=== PATIENT | female | born 1930 | race Caucasian/White ===

== ENCOUNTER 2017-08-21 14:46 | Inpatient (IN) ==
[2017-08-21] MEDS ORDERED: Ipratropium/Albuterol Neb 3 ML IH ONE (14:57)
[2017-08-21] MEDS ORDERED: 0.9 % Sodium Chloride 1,000 ML IVC ONE ×2 (14:57→16:21)
[2017-08-21] MEDS ORDERED: Acetaminophen 650 MG RECTAL SUPP RC ONE (14:59)
--- NOTE | 2017-08-21 15:01 | Emergency Department Note ---
Disposition Clinical Impression: HCAP (healthcare-associated pneumonia) UTI (urinary tract infection) Qualifiers: Urinary tract infection type: acute cystitis Hematuria presence: with hematuria Qualified Code(s): N30.01 - Acute cystitis with hematuria Sepsis Qualifiers: Sepsis type: sepsis due to unspecified organism Qualified Code(s): A41.9 - Sepsis, unspecified organism Disposition: Admitted As Inpatient Condition: Fair Time of Disposition: 16:59 SOB HPI - General Chief Complaint: ED Shortness of Breath/Dyspnea Stated Complaint: NANETTE Source: patient, EMS Limitations: other Nursing Notes Reviewed: Yes Vital Signs Reviewed: Yes - History of Present Illness 87-year-old female past medical history of CHF, urinary tract infections, stroke , but his emergency department with shortness of breath, fever, from [facility]. Patient was diagnosed with pneumonia in the right lower lobe today and sent here from [facility]. Patient is currently complaining of suprapubic pain. She does have past medical history of recurrent urinary tract infections. Family at bedside states that she has her normal mental status. Patient has no previous history of blood clots, COPD, cancer. She reports no swelling in the lower extremities. - Related Data Home Medications Medication Instructions Recorded Confirmed Cholecalciferol (Vitamin D3) 50,000 unit PO QMONTH 07/14/16 08/21/17 [Vitamin D] Clopidogrel [Plavix] 75 mg PO DAILY 07/14/16 08/21/17 Furosemide [Lasix] 20 mg PO DAILY 07/14/16 08/21/17 HYDROcodone/Acet 5/325 mg [[place] 1 tab PO HS 07/14/16 08/21/17 5-325 mg] Loratadine [Allergy Relief] 10 mg PO DAILY 07/14/16 08/21/17 Menthol/Zinc Ox/Aloe/Carley Oil 1 appl TP TID 07/14/16 08/21/17 [Chamosyn Ointment] Multivit-Min/FA/Lycopen/Lutein 1 each PO DAILY 07/14/16 08/21/17 [Centrum Silver Tablet] Sennosides [Senna] 8.6 mg PO DAILY PRN 07/14/16 08/21/17 amLODIPine [Norvasc] 5 mg PO DAILY 07/14/16 08/21/17 Acetaminophen [Tylenol] 650 mg PO Q6H PRN 08/25/16 08/21/17 Ascorbate Calcium [Vitamin C] 500 mg PO DAILY 08/25/16 08/21/17 Nystatin POWDER [Nystop] 1 appl TP BID PRN 08/25/16 08/21/17 Acetaminophen [Tylenol] 650 mg PO 0700,199908/21/17 08/21/17 Ammonium Lactate [Mayra-Hydrolac] 1 appl TP BID 08/21/17 08/21/17 Bisacodyl [Dulcolax] 10 mg RC AD PRN 08/21/17 08/21/17 Magnesium Hydroxide [Milk of 2,400 mg PO DAILY PRN 08/21/17 08/21/17 Magnesia] Oxygen 2 l NS AD 08/21/17 08/21/17 Sertraline [Zoloft] 75 mg PO DAILY 08/21/17 08/21/17 traZODone [TraZODone] 50 mg PO HS 08/21/17 08/21/17 Allergies Allergy/AdvReac Type Severity Reaction Status Date / Time No Known Allergies Allergy Verified 11/27/15 14:21 All systems ED: reviewed and negative except as stated. Review of Systems: As Per HPI Constitutional: Reports: fever Cardiovascular: Denies: chest pain Respiratory: Reports: cough, dyspnea, sputum production. Denies: hemoptysis Gastrointestinal: Reports: abdominal pain. Denies: nausea, vomiting Genitourinary: Reports: urgency, dysuria, frequency Past Medical History - Past Medical History Source: old records reviewed, nursing notes reviewed Medical history: Reports: CHF, CVA, hyperlipidemia, hypertension Psychiatric history: Reports: depression - Social History Smoking Status: Never smoker Smokeless Tobacco Status: No Alcohol use: Reports: none Drug use: Reports: none Physical Exam CONSTITUTIONAL: Alert and oriented X3, mild respiratory distress, tachypnea, HEAD: Normocephalic; atraumatic. EYES: PERRL, no scleral icterus. NOSE: The nose is normal in appearance without rhinorrhea RESP: Normal chest excursion with respiration; rhonchi throughout CARD: Regular rhythm, without murmurs, rub or gallop ABD: Non-distended; mild tenderness to palpation of the suprapubic region, soft ,without rigidity, rebound or guarding SKIN: 2 sacral decubiti, one on the coccyx appears to be stage I, one on the left inferior gluteal region that I stage I as well. - General Limitations: other Course - Reevaluation(s) Reevaluation #1: Awaiting all labs Time: 16:30 Vital Signs Temperature 103.0 F H 08/21/17 14:52 Pulse Rate 109 08/21/17 14:52 Respiratory Rate 24 08/21/17 14:52 Blood Pressure 135/106 08/21/17 14:52 O2 Sat by Pulse Oximetry 89 08/21/17 14:52 Temperature 99.8 F H 08/21/17 17:49 Pulse Rate 89 08/21/17 19:00 Respiratory Rate 22 08/21/17 19:44 Blood Pressure 130/67 08/21/17 19:44 O2 Sat by Pulse Oximetry 98 08/21/17 19:00 Oxygen Delivery Oxygen Delivery Bipap Shortness of Breath/Dyspnea - MDM Narrative Medical decision making narrative: 87 year old female presents to the emergency department with an oxygen saturation 86% on nasal cannula, fever of 103 degrees Fahrenheit, tachycardic, but normotensive. There is a chest x-ray from her nursing facility that reveals a right lower lobe pneumonia. This was concerning for aspiration versus healthcare acquired pneumonia. There is also concern for urinary tract infection as patient currently has urinary tract infections. We have ordered a chest x-ray, CBC, CMP and lipase she was having abdominal pain, lactic acid. Patient is being given 1 L of normal saline at this time and she has a history of congestive heart failure. She is also receiving vancomycin, Zosyn, Levaquin via IV. Patient's electrocardiogram not reveal any ischemic ST changes. I have placed patient on BiPAP here in the emergency department as well as well as administered duo nebs. This patient does not have a medical history of COPD. I will not start any steroids at this time. Her chest x-ray reveals right lower lung pneumonia. The patient also has a leukocytosis of 17. Patient renal insufficiency with a creatinine of 1.33. Lactic acid was within normal limits. The patient does have an elevated troponin 0.05. At this time, the patient does not have any ischemic EKG changes or chest pain to suggest acute coronary syndrome. This elevated troponin may be due to demand ischemia versus her acute renal insufficiency. Patient's tachycardia has responded well to administration of 2 L of normal saline. Urinalysis reveals urinary tract infection. Patient is currently on the IV antimicrobials that should cover this. I discussed plan with patient and family at bedside to admit. They agreed with the plan. Patient was admitted to the hospitalist. Patient is currently on BiPAP and has responded well to it. Chest X-Ray 08/21/17 14:55 IMPRESSION: The exam is limited due to significant motion artifact. Findings suggest right lung base atelectasis versus pneumonia. D/ / 08/21/2017 15:51:27 Jama Cooley [facility] / [facility] Interpreting Provider: Jama Cooley MD - Lab Data Result diagrams: 08/21/17 16:15 08/21/17 16:15 Lab Results 08/21/17 08/21/17 08/21/17 Range/Units 16:15 16:15 16:15 WBC 17.0 H (4.3-11.1) K/mcL RBC 3.88 (3.82-4.97) M/mcL Hgb 11.9 (11.5-15.4) g/dL Hct 36.9 (35.3-44.9) % MCV 95.1 (83.0-100.0) fL MCH 30.7 (28.0-33.3) pg MCHC 32.2 (31.6-35.5) g/dL RDW 15.8 H (11.5-14.5) % Plt Count 145 (140-400) K/mcL MPV 10.4 (9.4-12.4) fL Immature Gran % 1.0 (0-4) % Seg Neutrophils % 88.1 % Lymphocytes % 5.2 % Monocytes % 5.5 % Eosinophils % 0.1 % Basophils % 0.1 % Neutrophils # 15.0 H (1.6-8.9) K/mcL Lymphocytes # 0.9 (0.6-4.6) K/mcL Monocytes # 0.9 (0.0-1.3) K/mcL Eosinophils # 0.0 (0.0-0.6) K/mcL Basophils # 0.0 (0.0-0.2) K/mcL VBG pH (7.32-7.42) pH Units VBG pCO2 (41-51) mmHg VBG pO2 (25-50) mmHg VBG HCO3 (21-27) mEq/L Sodium 142 (136-145) mEq/L Potassium 4.0 (3.5-4.5) mEq/L Chloride 105 (98-109) mEq/L Carbon Dioxide 21 (19-29) mEq/L BUN 30 H (7-20) mg/dL Creatinine 1.33 H (0.57-1.11) mg/dL Est GFR ( Amer) 46 L (> 60) Est GFR (Non-Af Amer) 38 L (> 60) BUN/Creatinine Ratio 23 (6-26) Glucose 157 H (70-99) mg/dL Calculated Osmolality 303 H (280-300) Lactic Acid 1.4 (0.5-2.2) mmol/L Calcium 8.5 L (8.6-10.8) mg/dL Total Bilirubin 1.3 H (0.2-1.2) mg/dL Direct Bilirubin 0.6 H (0.0-0.5) mg/dL Indirect Bilirubin 0.7 (0.0-1.2) mg/dL AST 25 (5-34) Units/L ALT 12 (0-55) Units/L Alkaline Phosphatase 74 (38-126) Units/L Troponin I (0-0.03) ng/mL B-Natriuretic Peptide (0-100) pg/mL Serum Total Protein 7.9 (6.0-8.3) g/dL Albumin 2.8 L (3.5-5.0) g/dL Globulin 5.1 H (2.4-3.5) g/dL Albumin/Globulin Ratio 0.5 L (1.1-2.2) Lipase 21 (8-78) Units/L Urine Color (Yellow) Urine Clarity (Clear) Urine pH (5.0-8.0) pH Units Ur Specific Fluker (1.010-1.025) Urine Protein (Neg-Trace) mg/dL Urine Glucose (UA) (Normal) mg/dL Urine Ketones (Negative) mg/dL Urine Blood (Negative) Urine Nitrite (Negative) Urine Bilirubin (Negative) Urine Urobilinogen (Normal) mg/dL Ur Leukocyte Esterase (Negative) Urine Microscopic RBC (0-3) per hpf Urine Microscopic WBC (0-3) per hpf Ur Squamous Epith Cells (None-Few) per lpf Urine Bacteria (None-Few) per hpf Hyaline Casts (None-Few) per lpf Ur Culture Indicated? (NO) 08/21/17 08/21/17 08/21/17 Range/Units 16:15 16:15 16:27 WBC (4.3-11.1) K/mcL RBC (3.82-4.97) M/mcL Hgb (11.5-15.4) g/dL Hct (35.3-44.9) % MCV (83.0-100.0) fL MCH (28.0-33.3) pg MCHC (31.6-35.5) g/dL RDW (11.5-14.5) % Plt Count (140-400) K/mcL MPV (9.4-12.4) fL Immature Gran % (0-4) % Seg Neutrophils % % Lymphocytes % % Monocytes % % Eosinophils % % Basophils % % Neutrophils # (1.6-8.9) K/mcL Lymphocytes # (0.6-4.6) K/mcL Monocytes # (0.0-1.3) K/mcL Eosinophils # (0.0-0.6) K/mcL Basophils # (0.0-0.2) K/mcL VBG pH (7.32-7.42) pH Units VBG pCO2 (41-51) mmHg VBG pO2 (25-50) mmHg VBG HCO3 (21-27) mEq/L Sodium (136-145) mEq/L Potassium (3.5-4.5) mEq/L Chloride (98-109) mEq/L Carbon Dioxide (19-29) mEq/L BUN (7-20) mg/dL Creatinine (0.57-1.11) mg/dL Est GFR ( Amer) (> 60) Est GFR (Non-Af Amer) (> 60) BUN/Creatinine Ratio (6-26) Glucose (70-99) mg/dL Calculated Osmolality (280-300) Lactic Acid (0.5-2.2) mmol/L Calcium (8.6-10.8) mg/dL Total Bilirubin (0.2-1.2) mg/dL Direct Bilirubin (0.0-0.5) mg/dL Indirect Bilirubin (0.0-1.2) mg/dL AST (5-34) Units/L ALT (0-55) Units/L Alkaline Phosphatase (38-126) Units/L Troponin I 0.05 H* (0-0.03) ng/mL B-Natriuretic Peptide 157 H (0-100) pg/mL Serum Total Protein (6.0-8.3) g/dL Albumin (3.5-5.0) g/dL Globulin (2.4-3.5) g/dL Albumin/Globulin Ratio (1.1-2.2) Lipase (8-78) Units/L Urine Color Dark Yellow (Yellow) Urine Clarity Turbid A (Clear) Urine pH 6.0 (5.0-8.0) pH Units Ur Specific Fluker 1.023 (1.010-1.025) Urine Protein 100 H (Neg-Trace) mg/dL Urine Glucose (UA) Normal (Normal) mg/dL Urine Ketones Trace H (Negative) mg/dL Urine Blood Large H (Negative) Urine Nitrite Negative (Negative) Urine Bilirubin Small H (Negative) Urine Urobilinogen 2.0 H (Normal) mg/dL Ur Leukocyte Esterase Large H (Negative) Urine Microscopic RBC 15-30 H (0-3) per hpf Urine Microscopic WBC TNTC H (0-3) per hpf Ur Squamous Epith Cells Many H (None-Few) per lpf Urine Bacteria Moderate H (None-Few) per hpf Hyaline Casts None Seen (None-Few) per lpf Ur Culture Indicated? YES A (NO) 08/21/17 08/21/17 Range/Units 16:29 16:56 WBC (4.3-11.1) K/mcL RBC (3.82-4.97) M/mcL Hgb (11.5-15.4) g/dL Hct (35.3-44.9) % MCV (83.0-100.0) fL MCH (28.0-33.3) pg MCHC (31.6-35.5) g/dL RDW (11.5-14.5) % Plt Count (140-400) K/mcL MPV (9.4-12.4) fL Immature Gran % (0-4) % Seg Neutrophils % % Lymphocytes % % Monocytes % % Eosinophils % % Basophils % % Neutrophils # (1.6-8.9) K/mcL Lymphocytes # (0.6-4.6) K/mcL Monocytes # (0.0-1.3) K/mcL Eosinophils # (0.0-0.6) K/mcL Basophils # (0.0-0.2) K/mcL VBG pH 7.35 (7.32-7.42) pH Units VBG pCO2 45 (41-51) mmHg VBG pO2 68 H (25-50) mmHg VBG HCO3 25 (21-27) mEq/L Sodium (136-145) mEq/L Potassium (3.5-4.5) mEq/L Chloride (98-109) mEq/L Carbon Dioxide (19-29) mEq/L BUN (7-20) mg/dL Creatinine (0.57-1.11) mg/dL Est GFR ( Amer) (> 60) Est GFR (Non-Af Amer) (> 60) BUN/Creatinine Ratio (6-26) Glucose (70-99) mg/dL Calculated Osmolality (280-300) Lactic Acid 1.3 (0.5-2.2) mmol/L Calcium (8.6-10.8) mg/dL Total Bilirubin (0.2-1.2) mg/dL Direct Bilirubin (0.0-0.5) mg/dL Indirect Bilirubin (0.0-1.2) mg/dL AST (5-34) Units/L ALT (0-55) Units/L Alkaline Phosphatase (38-126) Units/L Troponin I (0-0.03) ng/mL B-Natriuretic Peptide (0-100) pg/mL Serum Total Protein (6.0-8.3) g/dL Albumin (3.5-5.0) g/dL Globulin (2.4-3.5) g/dL Albumin/Globulin Ratio (1.1-2.2) Lipase (8-78) Units/L Urine Color (Yellow) Urine Clarity (Clear) Urine pH (5.0-8.0) pH Units Ur Specific [place] (1.010-1.025) Urine Protein (Neg-Trace) mg/dL Urine Glucose (UA) (Normal) mg/dL Urine Ketones (Negative) mg/dL Urine Blood (Negative) Urine Nitrite (Negative) Urine Bilirubin (Negative) Urine Urobilinogen (Normal) mg/dL Ur Leukocyte Esterase (Negative) Urine Microscopic RBC (0-3) per hpf Urine Microscopic WBC (0-3) per hpf Ur Squamous Epith Cells (None-Few) per lpf Urine Bacteria (None-Few) per hpf Hyaline Casts (None-Few) per lpf Ur Culture Indicated? (NO) - EKG Data EKG attestation: Yes I reviewed and interpreted this EKG. EKG results narrative: 15:03 Ventricular rate 108 bpm, FL interval 142 ms, QRS duration 122 ms, QT 323 ms, QTC 386 ms, left axis deviation. Sinus rhythm ventricular rate 108 bpm. Right bundle branch block. There is no evidence of any ischemic ST changes noted on this electrocardiogram. No previous allergic cardiogram to compare this study to Attestation Statement - Attestation Attestation: I examined this patient and my medical decision-making was reviewed with the Resident Physician. I agree with the documented findings, disposition and treatment plan as described except to the extent set forth below. 87-year-old female presents to ED from extended care facility due to difficulty breathing and respiratory distress. Little verbal input from the patient. Uncertain as to the exact duration of time of symptoms but has been increasingly short of breath. There has been fever as well. Some complaints of suprapubic discomfort. No known vomiting. No flank or back pain. Elderly female in respiratory distress with BiPAP mask in place. He is membranes are moist. Neck is supple. Chest with coarse rhonchi or to the right base. Scattered expiratory wheezes. Cardiac exam regular, tachycardic. Chest wall non-tender. Abdomen soft and non-distended. Extremities with symmetric edema. Patient was continued on BiPAP for support and chest x-ray consistent with a right lower lobe infiltrate. Broad-spectrum antibiotics were initiated and she will be admitted for further evaluation. Renal function was at baseline, lactate was normal. No hypotension throughout her time in the ED. The high probability of a clinically significant, sudden or life threatening deterioration of the [cardiopulmonary] system(s) required my full and direct attention, intervention and personal management. The aggregate critical care time was [15] minutes. This time is in addition to time spent performing reported procedures but includes the following: [x] Data Review and interpretation [x] Patient assessment and monitoring of vital signs [x] Documentation [x] Medication orders and management
[2017-08-21] MEDS ORDERED: Vancomycin 1,250 MG in D5% in Water 250 ML IVPB ONE (15:08)
[2017-08-21] MEDS ORDERED: Piperacillin/Tazobactam 4.5 GM in Water for inj. (sterile) 20 ML IVP ONE (15:09)
[2017-08-21 16:32] LABS: VBG HCO3 25 mEq/L (21-27); VBG PCO2 45 mmHg (41-51); VBG PH 7.35 pH Units (7.32-7.42); VBG PO2 68 mmHg (25-50)
[2017-08-21 16:37] LABS: Basophils % 0.1 %; Eosinophils % 0.1 %; Hematocrit 36.9 % (35.3-44.9); Hemoglobin 11.9 g/dL (11.5-15.4); Lymphocytes # 0.9 K/mcL (0.6-4.6); Lymphocytes % 5.2 %; Mean Corpuscular HGB Conc 32.2 g/dL (31.6-35.5); Mean Corpuscular Hemoglobin 30.7 pg (28.0-33.3); Mean Corpuscular Volume 95.1 fL (83.0-100.0); Mean Platelet Volume 10.4 fL (9.4-12.4); Monocytes # 0.9 K/mcL (0.0-1.3); Monocytes % 5.5 %; Platelet Count 145 K/mcL (140-400); Red Blood Count 3.88 M/mcL (3.82-4.97); Red Cell Distribution Width 15.8 % (11.5-14.5); Segmented Neutrophils % 88.1 %
[2017-08-21 16:38] LABS: Bilirubin,Urine Small (Negative); Blood,Urine Large (Negative); Clarity,Urine Turbid (Clear); Color,Urine Dark Yellow (Yellow); Glucose,Urine (UA) Normal (Normal); Ketones,Urine Trace mg/dL (Negative); Leukocyte Esterase,Urine Large (Negative); Nitrite,Urine Negative (Negative); Protein,Urine 100 mg/dL (Neg-Trace); Specific Gravity,Urine 1.023 (1.010-1.025)
[2017-08-21 16:39] LABS: Bacteria,Urine Moderate per hpf (None-Few); RBC,Urine 15-30 per hpf (0-3); Squamous Epithelial Cell,Urine Many per lpf (None-Few); WBC,Urine TNTC per hpf (0-3)
[2017-08-21 16:43] LABS: Albumin 2.8 g/dL (3.5-5.0); Albumin/Globulin Ratio 0.5 (1.1-2.2); Bilirubin,Direct 0.6 mg/dL (0.0-0.5); Bilirubin,Indirect 0.7 mg/dL (0.0-1.2); Bilirubin,Total 1.3 mg/dL (0.2-1.2); Calcium 8.5 mg/dL (8.6-10.8); Globulin 5.1 g/dL (2.4-3.5); Total Protein 7.9 g/dL (6.0-8.3)
[2017-08-21 17:00] LABS: Hyaline Casts,Urine None Seen per lpf (None-Few)
[2017-08-21] MEDS ORDERED: Ondansetron 4 MG/2 ML VIAL IVP PRN (21:08)
[2017-08-21] MEDS ORDERED: Naloxone 0.4 MG/ML INJ IVP PRN (21:08)
--- NOTE | 2017-08-21 21:23 | Internal Med History&Physical ---
<EnrikeCurtis Leyva - Last Filed: 08/21/17 22:33> Date of Encounter: 08/21/17 Time of Encounter: 20:00 Assessment and Plan (1) Sepsis Current visit: Yes Status: Acute Patient presents with severe sepsis criteria of WBC of 17.0, temperature of 103.0F, HR of 109 bpm, and RR of 24. Infection sources include right lower-lobe pneumonia and UTI. Lactic acid 1.3. Bilirubin 1.3. Creatinine 1.33. Blood cultures 2. Urine culture ordered. Legionella and strep pneumoniae urine antigens ordered. Sputum culture ordered. Patient received two 1L 0.9 NS boluses in the ED. Will hold further IV fluids for now d/t current bilateral rhonchi in lungs and elevated BNP/hx of CHF. Current BP 144/77. IVPB Levaquin loading dose of 750 mg now with continuation of 500 mg every 48 for renal dosing due to current GFR 38 and creatinine 1.33. Will continue vancomycin with pharmacy dosing Zosyn 3.375 g every 8 for infection coverage of pneumonia and UTI. Continuous cardiac telemetry. Pt. placed on BiPap. DuoNebs Q4 scheduled. NPO for now d/t somnolence. Pt. is at high risk for sepsis and further morbidity d/t current sx, hx of recurrent UTI infections, and risk factors for HCAP. Inpatient. Qualifiers: Sepsis type: sepsis due to unspecified organism Qualified Code(s): A41.9 - Sepsis, unspecified organism (2) UTI (urinary tract infection) Current visit: Yes Status: Acute Pts. family reports hx of acute on chronic UTIs. Ford catheter placed with purulent urine voided. Urine culture ordered. Will administer IVPB Levaquin, vancomycin pharmacy dosing, and Zosyn 3.375 g every 8 for infection coverage. Monitor I&O. Qualifiers: Urinary tract infection type: acute cystitis Hematuria presence: with hematuria Qualified Code(s): N30.01 - Acute cystitis with hematuria (3) HCAP (healthcare-associated pneumonia) Current visit: Yes Status: Acute Acute right lower-lobe pneumonia diagnosed at [facility] today. Pt. 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 IVPB vancomycin and Zosyn administered ED. Will add IVPB Levaquin with loading dose of 750 mg now and then 500 mg Q48HR. Will continue vancomycin pharmacy dosing and Zosyn 3.375 g every 8 for HCAP infection coverage. Sputum culture ordered. Blood cultures 2. Legionella and strep pneumoniae urine antigens ordered. Pt. placed on BiPap. DuoNebs Q4 scheduled. (4) Elevated troponin Current visit: Yes Status: Acute Initial troponin 0.05 on admission most likely due to stress reaction from current tachycardia d/t sepsis. Will trend x2. Continuous cardiac telemetry. Will monitor pt. for signs of cardiac and/or respiratory distress. (5) Hyperglycemia Current visit: Yes Status: Acute Acute hyperglycemia w/BG of 157 on admission. Pt. NPO for now d/t somnolence. BG checks Q6HR and low-dose correction sliding scale insulin ordered with hypoglycemic protocol. A1c in a.m. labs. (6) CHF (congestive heart failure) Current visit: Yes Status: Chronic Hx of chronic CHF. BNP currently 157 on admission. Pt. given two 1L boluses of 0.9 NS in ED d/t sepsis criteria. Pt. is rhonchorous bilaterally on exam. Lactic acid currently 1.3. Will hold further IV fluids for now and administer if lactic acid becomes elevated. No pedal edema present at this time. Continuous cardiac telemetry. Monitor I&O and daily weight. Qualifiers: Congestive heart failure type: unspecified congestive heart failure type Congestive heart failure chronicity: unspecified congestive heart failure chronicity Qualified Code(s): I50.9 - Heart failure, unspecified (7) HLD (hyperlipidemia) Current visit: Yes Status: Chronic Hx of chronic HLD. Lipid panel in a.m. labs. Will resume PO statin when pt. is alert and passes dysphagia screen. Qualifiers: Hyperlipidemia type: pure hypercholesterolemia Qualified Code(s): E78.00 - Pure hypercholesterolemia, unspecified; E78.0 - Pure hypercholesterolemia (8) HTN (hypertension) Current visit: Yes Status: Chronic Hx of chronic HTN. Pt. is currently somnolent, so will hold PO HTN medications and administer hydralazine IVP 10 mg every 6 when necessary if SBP >180 or DBP > 100. Monitor pt. and VS. 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 Pts. family states she is not mobile and is transferred from wheelchair to bed. D/t hx of decubitus ulcers, orders to turn and position Q2 and assess for ulcers. Consult wound care if appropriate. (10) DVT prophylaxis Current visit: Yes Status: Acute Heparin 5000 units SQ every 12 for DVT prophylaxis. Monitor patient for unusual bleeding. Internal Medicine - H&P: HPI Chief complaint: SOB/Dyspnea Admitted From: Long-term Nursing Facility Plans for Post Hospital Care: Transfer Senior Living Facility History of present illness: Ms. Barriga is a 87 year old female with medical hx of CHF, CVA, each on the, HTN presents from [facility] with chief complaint shortness of breath and dyspnea for the past several days. Patient was diagnosed with right lower lobe pneumonia at [facility] and previously complained of suprapubic pain with urination. Patient is currently somnolent on examination and unable to provide information. History of present illness information taken from family and previous medical records. Patient family states she does not have a history of DVT/PE, COPD, or cancer. Past Med Surg Social Fam HX - Past Medical History Source: old records reviewed, obtained from family Medical history: CHF, CVA, hyperlipidemia, hypertension Psychiatric history: depression - Social History Smoking Status: Never smoker Smokeless Tobacco Status: No Alcohol use: none Drug use: none Current living situation: Assisted Living Activity Level: Wheelchair bound Recent Out of Country Travel Within the Last 8 Weeks: No Exposure or Possible Exposure to Illness During Travel: No Internal Medicine - H&P: Meds Cholecalciferol (Vitamin D3) [Vitamin D] 50,000 unit PO QMONTH 07/14/16 [History ] Clopidogrel [Plavix] 75 mg PO DAILY 07/14/16 [History] Furosemide [Lasix] 20 mg PO DAILY 07/14/16 [History] HYDROcodone/Acet 5/325 mg [[place] 5-325 mg] 1 tab PO HS 07/14/16 [History] Loratadine [Allergy Relief] 10 mg PO DAILY 07/14/16 [History] Menthol/Zinc Ox/Aloe/Carley Oil [Chamosyn Ointment] 1 appl TP TID 07/14/16 [ History] Multivit-Min/FA/Lycopen/Lutein [Centrum Silver Tablet] 1 each PO DAILY 07/14/16 [History] Sennosides [Senna] 8.6 mg PO DAILY PRN 07/14/16 [History] amLODIPine [Norvasc] 5 mg PO DAILY 07/14/16 [History] Acetaminophen [Tylenol] 650 mg PO Q6H PRN 08/25/16 [History] Ascorbate Calcium [Vitamin C] 500 mg PO DAILY 08/25/16 [History] Nystatin POWDER [Nystop] 1 appl TP BID PRN 08/25/16 [History] Acetaminophen [Tylenol] 650 mg PO 699,199908/21/17 [History] Ammonium Lactate [Mayra-Hydrolac] 1 appl TP BID 08/21/17 [History] Bisacodyl [Dulcolax] 10 mg RC AD PRN 08/21/17 [History] Magnesium Hydroxide [Milk of Magnesia] 2,400 mg PO DAILY PRN 08/21/17 [History] Oxygen 2 l NS AD 08/21/17 [History] Sertraline [Zoloft] 75 mg PO DAILY 08/21/17 [History] traZODone [TraZODone] 50 mg PO HS 08/21/17 [History] 3 Allergy/AdvReac Type Severity Reaction Status Date / Time No Known Allergies Allergy Verified 11/27/15 14:21 ROS unobtainable: due to mental status (Patient is on BiPap and somnolent on examination) All Systems PM: A 10-system review of systems was performed and is negative for pertinent findings except as documented above in the HPI. - Constitutional Vitals: Temp Pulse Resp BP Pulse Ox 99.8 F H 89 22 130/67 98 08/21/17 17:49 08/21/17 19:00 08/21/17 19:44 08/21/17 19:44 08/21/17 19:00 General appearance: Present: A&O X 0 - Head Head exam: Present: atraumatic, normocephalic - Eye Eye exam: Present: normal appearance - ENT ENT exam: Present: normal exam, normal external ear exam - Neck Neck exam general surgery: Present: normal inspection, supple, trachea midline - Respiratory Respiratory exam: Present: rhonchi - Cardiovascular Cardiovascular exam: Present: tachycardia - GI/Abdominal GI/Abdominal exam: Present: normal bowel sounds, soft, no peritoneal signs - Rectal Rectal exam: Present: deferred - Additional comments: exam deferred. - Extremities Exam Extremities exam: Present: warm, radial pulses palpable and symmetrical. Absent : calf tenderness, cyanotic, pedal edema - Neurological Exam Neurological exam: Present: altered - Skin Skin exam: Present: dry, intact Internal Med - H&P Results - Labs CBC & Chem 7: 08/21/17 16:15 08/21/17 16:15 - EKG Data EKG shows normal: sinus rhythm Rate: tachycardia - EKG Data Prior EKG available for review: no EKG comments: 08/21/17 21:46 EKG dated 08/21/17 sinus tachycardia with right bundle-branch block, left anterior fascicular block, and possible anterior myocardial infarction ( probably old). - Diagnostic Studies Chest x-ray Additional comments: Impressions Chest X-Ray 08/21/17 14:55 IMPRESSION: The exam is limited due to significant motion artifact. Findings suggest right lung base atelectasis versus pneumonia. D/ / 08/21/2017 15:51:27 Jama Cooley MD / earnold Interpreting Provider: Jama Cooley MD <America Maria K - Last Filed: 08/22/17 02:55> Date of Encounter: 08/21/17 Internal Medicine - H&P: HPI History of present illness: Ms. Barriga is a 87 year old female All Systems PM: A 10-system review of systems was performed and is negative for pertinent findings except as documented above in the HPI. - Constitutional Vitals: Temp Pulse Resp BP Pulse Ox 98 F 87 16 118/72 96 08/22/17 00:58 08/22/17 00:58 08/22/17 00:58 08/22/17 00:58 08/22/17 01:18 Internal Med - H&P Results - Labs CBC & Chem 7: 08/21/17 16:15 08/21/17 16:15 Labs: Cardiac Enzymes 08/21/17 Range/Units 22:49 Troponin I 0.05 H* (0-0.03) ng/mL - Attending Attestation She was seen and examined independently and personal personally. She is admitted for UTI sepsis and pneumonia. She has underlying C daily. BNP is also elevated and she is on 2 L oxygen. Chest examination showed breath sounds are shallow but no significant wheezing or rales. Abdomen soft nontender no organomegaly. Plan discussed with A PLASTIC AND RECONSTRUCTIVE SURGEON and agree with the findings.
[2017-08-21] MEDS ORDERED: Levofloxacin 750 MG/150 ML 750 MG/150 ML BAG IVPB STA (21:37)
[2017-08-21] MEDS ORDERED: Vancomycin 1,250 MG in D5% in Water 250 ML IVPB SCH (22:00)
[2017-08-21] MEDS ORDERED: *HR* Dextrose 50 % in Water (Syg) 50 ML SYRINGE IVP PRN (22:06)
[2017-08-21] MEDS ORDERED: D5% in Water 1,000 ML IVC PRN (22:06)
[2017-08-21] MEDS ORDERED: Dextrose Gel 15 GM PO PRN ×2 (22:06)
[2017-08-21] MEDS: *HR* Heparin 5,000 UNIT/ML VIAL SQ SCH (22:52)
[2017-08-21] MEDS: Insulin LISPRO 300 UNITS/3 ML VIAL SQ SCH (22:55)
[2017-08-21] MEDS: Ipratropium/Albuterol Neb 3 ML IH SCH (23:19)
[2017-08-22] MEDS: Piperacillin/Tazobactam 3.375 GM/200 ML BAG IVPB SCH ×4 (00:24→22:56)
[2017-08-22] MEDS: Ipratropium/Albuterol Neb 3 ML IH SCH ×6 (03:40→23:30)
[2017-08-22 04:39] LABS: INR 1.3; Prothrombin Time 14.3 Seconds (9.4-12.1)
[2017-08-22 04:42] LABS: Activated Partial Thrombo Time 29.1 Seconds (26.0-36.0)
[2017-08-22 04:49] LABS: Basophils % 0.2 %; Eosinophils % 0.1 %; Hematocrit 32.7 % (35.3-44.9); Hemoglobin A1C 5.2 %; Immature Granulocytes % 1.1 % (0-4); Lymphocytes # 1.6 K/mcL (0.6-4.6); Lymphocytes % 8.2 %; Mean Corpuscular HGB Conc 30.6 g/dL (31.6-35.5); Mean Corpuscular Hemoglobin 29.8 pg (28.0-33.3); Mean Corpuscular Volume 97.3 fL (83.0-100.0); Mean Platelet Volume 10.4 fL (9.4-12.4); Neutrophils # 16.1 K/mcL (1.6-8.9); Platelet Count 140 K/mcL (140-400); Red Blood Count 3.36 M/mcL (3.82-4.97); Red Cell Distribution Width 15.9 % (11.5-14.5); Segmented Neutrophils % 85.4 %
[2017-08-22 04:54] LABS: Albumin 2.5 g/dL (3.5-5.0); Albumin/Globulin Ratio 0.5 (1.1-2.2); Bilirubin,Total 1.4 mg/dL (0.2-1.2); Calcium 8.2 mg/dL (8.6-10.8); Globulin 4.7 g/dL (2.4-3.5); Magnesium 1.9 mg/dL (1.6-2.6); Potassium 4.1 mEq/L (3.5-4.5); Total Protein 7.2 g/dL (6.0-8.3)
[2017-08-22] MEDS: *HR* Heparin 5,000 UNIT/ML VIAL SQ SCH ×2 (06:07→18:46)
--- NOTE | 2017-08-22 06:51 | Electrocardiograph Report ---
[place] [id number] Test Date: 2017-08-21 Pat Name: Mariaelena Barriga Department: 104 Room: 2A11 Gender: F Behavioral Technician: COKeesha : 1930 Requested By: Jaylon Paniagua Order Number: [id number] Reading MD: Alida Negrete Measurements Intervals [place] Rate: 108 P: -59 VA: 142 QRS: -71 QRSD: 122 T: 61 QT: 323 QTc: 386 Interpretive Statements SINUS TACHYCARDIA RIGHT BUNDLE BRANCH BLOCK [120+ ms QRS DURATION, UPRIGHT V1, 40+ ms S IN I/aVL/V4/V5/V6] LEFT ANTERIOR FASCICULAR BLOCK [QRS AXIS <= -45, QR IN I, RS IN II] POSSIBLE ANTERIOR MYOCARDIAL INFARCTION [30 ms Q WAVE IN V3/V4, OR R < 0.2 mV IN V4], PROBABLY OLD BASELINE ARTIFACT Electronically Signed On 08-22-2017 6:49:23 EST by Alida Negrete
[2017-08-22] MEDS: Insulin LISPRO 300 UNITS/3 ML VIAL SQ SCH ×4 (09:41→20:58)
[2017-08-22] MEDS ORDERED: Acetaminophen 325 MG TABLET PO PRN ×2 (11:01→11:28)
[2017-08-22] MEDS: *HR* HYDROcodone/Acet 5/325 mg TABLET PO PRN ×2 (13:23→21:12)
--- NOTE | 2017-08-22 15:33 | Internal Med Progress Note ---
<Mingo Gonzales - Last Filed: 08/22/17 15:30> Date of Encounter: 08/22/17 Time of Encounter: 15:31 - Assessment and plan (1) Sepsis Current Visit: Yes Status: Acute Assessment and plan: Patient presented with leukocytosis, fever which persists. Secondary to UTI and pneumonia. Lactic acid has been normal. Patient received adequate fluid hydration. Cultures are pending. Continue broad-spectrum antibiotics with vancomycin, Zosyn, Levaquin. Qualifiers: Sepsis type: sepsis due to unspecified organism Qualified Code(s): A41.9 - Sepsis, unspecified organism (2) HCAP (healthcare-associated pneumonia) Current Visit: Yes Status: Acute Assessment and plan: Right lower lobe infiltrate seen on chest x-ray. She resides in [place] putting her at risk for resistant organisms. Patient is on broad-spectrum antibiotics with vancomycin, Zosyn, Levaquin. Strep and legionella urinary antigens were negative. Rapid flu test was negative. We will attempt to obtain a sputum culture and tailor antibiotics based on culture results. (3) UTI (urinary tract infection) Current Visit: Yes Status: Acute Assessment and plan: Patient has evidence of urinary tract infection on UA with large leukocyte esterase, bacteria seen on Micro. Culture pending, continue antibiotics as above. Qualifiers: Urinary tract infection type: acute cystitis Hematuria presence: with hematuria Qualified Code(s): N30.01 - Acute cystitis with hematuria (4) Diarrhea Current Visit: Yes Status: Acute Assessment and plan: Patient is having continual diarrhea. She did have antibiotics 3 weeks ago and resides in a [place] putting her at high risk for C. difficile infection. GI panel including C. difficile testing is pending. Qualifiers: Diarrhea type: unspecified type Qualified Code(s): R19.7 - Diarrhea, unspecified (5) Decubitus ulcer Current Visit: Yes Status: Acute Assessment and plan: Present on admission. No evidence of infection. Turn the patient every 2 hours , wound care per nursing protocol. 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 No new neurologic deficits. (7) HTN (hypertension) Current Visit: Yes Status: Chronic Assessment and plan: Stable. Continue to monitor. Qualifiers: Hypertension type: essential hypertension Qualified Code(s): I10 - Essential (primary) hypertension (8) DVT prophylaxis Current Visit: Yes Status: Acute Assessment and plan: Heparin 5000 units subcutaneous twice a day. - Subjective Interval history: Patient seen and examined at bedside. Patient states that she feels better today. She feels like her shortness of breath and cough are improved. Family is at bedside and fade states that she looks much better than she did yesterday. She denies any cough, congestion, chest pain. - Constitutional Vitals: Temp Pulse Resp BP Pulse Ox 101.3 F H 99 18 146/67 94 08/22/17 13:10 08/22/17 11:22 08/22/17 11:22 08/22/17 11:22 08/22/17 11:22 General appearance: Present: A&O X 2, no acute distress - Respiratory Respiratory exam: Present: rhonchi (Bilaterally). Absent: respiratory distress , stridor, wheezes, tachypnea - Cardiovascular Cardiovascular exam: Present: RRR. Absent: gallop, rubs, systolic murmur - GI/Abdominal GI/Abdominal exam: Present: normal bowel sounds, soft. Absent: distended, tenderness - Extremities Exam Extremities exam: Present: pedal edema. Absent: tenderness, warm - Back Exam Additional comments: Stage II decubitus ulcer, no drainage noted, does not appear infected. - Neurological Exam Neurological exam: Present: alert, CN II-XII intact Additional comments: Patient has chronic left-sided deficits. Internal Medicine: Result - Labs CBC & Chem 7: 08/22/17 04:24 08/22/17 04:24 Labs: Short CBC 08/22/17 Range/Units 04:24 WBC 18.9 H (4.3-11.1) K/mcL Hgb 10.0 L D (11.5-15.4) g/dL Hct 32.7 L (35.3-44.9) % Plt Count 140 (140-400) K/mcL Neutrophils # 16.1 H (1.6-8.9) K/mcL BMP 08/22/17 04:24 Sodium 141 Potassium 4.1 Chloride 106 Carbon Dioxide 22 BUN 30 H Creatinine 1.30 H Glucose 109 H Calcium 8.2 L Cardiac Enzymes 08/21/17 08/22/17 Range/Units 22:49 04:24 Troponin I 0.05 H* 0.05 H* (0-0.03) ng/mL Liver Function 08/22/17 Range/Units 04:24 Total Bilirubin 1.4 H (0.2-1.2) mg/dL AST 22 (5-34) Units/L ALT 10 (0-55) Units/L Alkaline Phosphatase 64 (38-126) Units/L Albumin 2.5 L (3.5-5.0) g/dL - ABG Interpretation ABG results: PT/INR, D-dimer PT 14.3 Seconds (9.4-12.1) H 08/22/17 04:24 Consult Discharge Plan - Plan Referrals: NONE,PCP [Non-Partnered Physician] - (patient is from [facility]) <Hector Downey - Last Filed: 08/23/17 08:07> Date of Encounter: 08/22/17 - Constitutional Vitals: Temp Pulse Resp BP Pulse Ox 100.2 F H 101 18 145/61 100 08/23/17 07:12 08/23/17 07:12 08/23/17 07:46 08/23/17 07:12 08/23/17 07:46 Internal Medicine: Result - Labs CBC & Chem 7: 08/23/17 05:25 08/23/17 05:25 Labs: Short CBC 08/23/17 Range/Units 05:25 WBC 14.1 H (4.3-11.1) K/mcL Hgb 9.3 L (11.5-15.4) g/dL Hct 28.6 L (35.3-44.9) % Plt Count 139 L (140-400) K/mcL Neutrophils # 11.3 H (1.6-8.9) K/mcL BMP 08/23/17 05:25 Sodium 136 Potassium 4.9 H Chloride 105 Carbon Dioxide 15 L BUN 32 H Creatinine 1.64 H Glucose 98 Calcium 8.2 L Liver Function 08/23/17 Range/Units 05:25 Total Bilirubin 1.1 (0.2-1.2) mg/dL AST 32 (5-34) Units/L ALT 11 (0-55) Units/L Alkaline Phosphatase 68 (38-126) Units/L Albumin 2.3 L (3.5-5.0) g/dL - ABG Interpretation ABG results: PT/INR, D-dimer PT 14.3 Seconds (9.4-12.1) H 08/22/17 04:24 - Attending Attestation I conducted a face to face diagnostic evaluation of this patient and my medical decision-making was reviewed with the Resident Physician, Dr. Mingo Gonzales. I agree with the documented findings, disposition and treatment plan as described except to the extent set forth below: Patient has a Ford catheter in place. She has stage II decubitus ulcers on her buttocks. She has diarrhea and fecal incontinence. We will continue with Ford catheter to protect the scan for further breakdown. Continue current IV antibiotics. Check stool GI panel.
[2017-08-22 15:49] LABS: Campylobacter by PCR Not detected (Not detect); E. coli O157 by PCR Not detected (Not detect); Enteroaggregative E.coli(EAEC) Not detected (Not detect); Enteropathogenic E.coli(EPEC) Not detected (Not detect); Enterotoxigenic E.coli (ETEC) Not detected (Not detect); Plesiomonas shigelloides PCR Not detected (Not detect); Salmonella PCR Not detected (Not detect); Shigalike tox-prod E coli STEC Not detected (Not detect); Vibrio PCR Not detected (Not detect); Vibrio cholerae PCR Not detected (Not detect); Yersinia enterocolitica PCR Not detected (Not detect)
[2017-08-22 15:50] LABS: Adenovirus F 40/41 PCR Not detected (Not detect); Astrovirus PCR Not detected (Not detect); C.difficile Toxin A/B by PCR See reflex test (Not detect); Cryptosporidium by PCR Not detected (Not detect); Cyclospora cayetanensis PCR Not detected (Not detect); Entamoeba histolytica PCR Not detected (Not detect); Giardia lamblia PCR Not detected (Not detect); Norovirus GI/GII PCR Not detected (Not detect); Rotavirus A PCR Not detected (Not detect); Sapovirus PCR Not detected (Not detect); Shig/EnteroinvasiveE coli EIEC Not detected (Not detect)
[2017-08-22] MEDS ORDERED: Vancomycin 1,000 MG in D5% in Water 250 ML IVPB SCH (16:00)
[2017-08-22] MEDS: MetroNIDAZOLE 500 MG/100 ML 500 MG/100 ML BAG IVPB SCH (17:30)
[2017-08-22] MEDS: Acetaminophen 325 MG TABLET PO PRN (17:53)
[2017-08-22] MEDS: Fluticasone Propionate Nasal 50 MCG/SPRAY BOTTLE NS SCH (22:48)
[2017-08-23] MEDS: MetroNIDAZOLE 500 MG/100 ML 500 MG/100 ML BAG IVPB SCH ×2 (01:16→08:38)
[2017-08-23] MEDS: Ipratropium/Albuterol Neb 3 ML IH SCH ×6 (04:04→23:59)
[2017-08-23] MEDS: *HR* Heparin 5,000 UNIT/ML VIAL SQ SCH ×2 (04:32→17:25)
[2017-08-23 05:32] LABS: Basophils % 0.2 %; Eosinophils % 0.1 %; Hematocrit 28.6 % (35.3-44.9); Hemoglobin 9.3 g/dL (11.5-15.4); Immature Granulocytes % 1.6 % (0-4); Lymphocytes # 1.6 K/mcL (0.6-4.6); Lymphocytes % 11.4 %; Mean Corpuscular HGB Conc 32.5 g/dL (31.6-35.5); Mean Corpuscular Hemoglobin 30.6 pg (28.0-33.3); Mean Corpuscular Volume 94.1 fL (83.0-100.0); Mean Platelet Volume 10.7 fL (9.4-12.4); Monocytes # 0.9 K/mcL (0.0-1.3); Monocytes % 6.4 %; Neutrophils # 11.3 K/mcL (1.6-8.9); Platelet Count 139 K/mcL (140-400); Red Blood Count 3.04 M/mcL (3.82-4.97); Red Cell Distribution Width 16.2 % (11.5-14.5); Segmented Neutrophils % 80.3 %
[2017-08-23 06:13] LABS: Albumin 2.3 g/dL (3.5-5.0); Albumin/Globulin Ratio 0.5 (1.1-2.2); Bilirubin,Total 1.1 mg/dL (0.2-1.2); Calcium 8.2 mg/dL (8.6-10.8); Globulin 5.1 g/dL (2.4-3.5); Total Protein 7.4 g/dL (6.0-8.3)
[2017-08-23 06:15] LABS: Potassium 4.9 mEq/L (3.5-4.5)
[2017-08-23] MEDS: Insulin LISPRO 300 UNITS/3 ML VIAL SQ SCH ×5 (08:34→20:58)
[2017-08-23] MEDS: Fluticasone Propionate Nasal 50 MCG/SPRAY BOTTLE NS SCH (08:40)
[2017-08-23] MEDS: Piperacillin/Tazobactam 3.375 GM/200 ML BAG IVPB SCH ×2 (09:51→16:11)
[2017-08-23] MEDS: Acetaminophen 325 MG TABLET PO PRN ×2 (11:30→19:44)
--- NOTE | 2017-08-23 13:00 | Internal Med Progress Note ---
<Kip Hobbs - Last Filed: 08/23/17 12:50> Date of Encounter: 08/23/17 Time of Encounter: 12:50 - Assessment and plan (1) Sepsis Current Visit: Yes Status: Acute Assessment and plan: Patient presented with leukocytosis, fever which persists. Secondary to UTI and pneumonia. Lactic acid has been normal. Patient received adequate fluid hydration. Cultures are pending. + c. diff, on IV vancomycin, will add oral vancomycin as well. Continue IV Zosyn. Discontinue levaquin and discontinue Flagyl Qualifiers: Sepsis type: sepsis due to unspecified organism Qualified Code(s): A41.9 - Sepsis, unspecified organism (2) HCAP (healthcare-associated pneumonia) Current Visit: Yes Status: Acute Assessment and plan: Right lower lobe infiltrate seen on chest x-ray. She resides in a retirement putting her at risk for resistant organisms. Strep and legionella urinary antigens were negative. Rapid flu test was negative. We will attempt to obtain a sputum culture and tailor antibiotics based on culture results Continue antibiotics as above. (3) UTI (urinary tract infection) Current Visit: Yes Status: Acute Assessment and plan: Patient has evidence of urinary tract infection on UA with large leukocyte esterase, bacteria seen on Micro. Legionella and strep pneumo antigens negative. Culture pending, continue antibiotics as above. Qualifiers: Urinary tract infection type: acute cystitis Hematuria presence: with hematuria Qualified Code(s): N30.01 - Acute cystitis with hematuria (4) Diarrhea Current Visit: Yes Status: Acute Assessment and plan: Patient is having continual diarrhea. She did have antibiotics 3 weeks ago and resides in a retirement Lab resulted positive for C. difficile Qualifiers: Diarrhea type: unspecified type Qualified Code(s): R19.7 - Diarrhea, unspecified (5) Decubitus ulcer Current Visit: Yes Status: Acute Assessment and plan: Present on admission. No evidence of infection. Turn the patient every 2 hours , wound care per nursing protocol. 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 No new neurologic deficits. (7) HTN (hypertension) Current Visit: Yes Status: Chronic Assessment and plan: Stable. Continue to monitor. Qualifiers: Hypertension type: essential hypertension Qualified Code(s): I10 - Essential (primary) hypertension (8) DVT prophylaxis Current Visit: Yes Status: Acute Assessment and plan: Heparin 5000 units subcutaneous twice a day. - Subjective Interval history: Patient seen and examined at bedside this morning. She is alert and oriented to person and place, she is not answering all questions appropriately. Her son who was present says she is not currently at her mental baseline - Constitutional Vitals: Temp Pulse Resp BP Pulse Ox 101.8 F H 100 18 124/63 93 08/23/17 12:28 08/23/17 11:21 08/23/17 11:36 08/23/17 11:21 08/23/17 11:36 General appearance: Present: A&O X 2, no acute distress - Respiratory Respiratory exam: Present: rhonchi (bilateral). Absent: accessory muscle use, rales, wheezes - Cardiovascular Cardiovascular exam: Present: RRR, +S1, +S2. Absent: diastolic murmur, gallop, rubs, systolic murmur - GI/Abdominal GI/Abdominal exam: Present: normal bowel sounds, soft. Absent: distended, tenderness - Extremities Exam Extremities exam: Present: pedal edema. Absent: tenderness, warm - Neurological Exam Neurological exam: Present: alert Additional comments: Left-sided weakness with contracture unchanged from baseline Internal Medicine: Result - Labs CBC & Chem 7: 08/23/17 05:25 08/23/17 05:25 Labs: Short CBC 08/23/17 Range/Units 05:25 WBC 14.1 H (4.3-11.1) K/mcL Hgb 9.3 L (11.5-15.4) g/dL Hct 28.6 L (35.3-44.9) % Plt Count 139 L (140-400) K/mcL Neutrophils # 11.3 H (1.6-8.9) K/mcL BMP 08/23/17 05:25 Sodium 136 Potassium 4.9 H Chloride 105 Carbon Dioxide 15 L BUN 32 H Creatinine 1.64 H Glucose 98 Calcium 8.2 L Liver Function 08/23/17 Range/Units 05:25 Total Bilirubin 1.1 (0.2-1.2) mg/dL AST 32 (5-34) Units/L ALT 11 (0-55) Units/L Alkaline Phosphatase 68 (38-126) Units/L Albumin 2.3 L (3.5-5.0) g/dL - ABG Interpretation ABG results: PT/INR, D-dimer PT 14.3 Seconds (9.4-12.1) H 08/22/17 04:24 Consult Discharge Plan - Plan Referrals: NONE,PCP [Non-Partnered Physician] - (patient is from [facility]) <Hector Downey - Last Filed: 08/23/17 19:20> Date of Encounter: 08/23/17 - Constitutional Vitals: Temp Pulse Resp BP Pulse Ox 100.7 F H 97 16 115/61 93 08/23/17 16:42 08/23/17 16:42 08/23/17 16:42 08/23/17 16:42 08/23/17 16:42 Internal Medicine: Result - Labs CBC & Chem 7: 08/23/17 05:25 08/23/17 05:25 Labs: Short CBC 08/23/17 Range/Units 05:25 WBC 14.1 H (4.3-11.1) K/mcL Hgb 9.3 L (11.5-15.4) g/dL Hct 28.6 L (35.3-44.9) % Plt Count 139 L (140-400) K/mcL Neutrophils # 11.3 H (1.6-8.9) K/mcL BMP 08/23/17 05:25 Sodium 136 Potassium 4.9 H Chloride 105 Carbon Dioxide 15 L BUN 32 H Creatinine 1.64 H Glucose 98 Calcium 8.2 L Liver Function 08/23/17 Range/Units 05:25 Total Bilirubin 1.1 (0.2-1.2) mg/dL AST 32 (5-34) Units/L ALT 11 (0-55) Units/L Alkaline Phosphatase 68 (38-126) Units/L Albumin 2.3 L (3.5-5.0) g/dL - ABG Interpretation ABG results: PT/INR, D-dimer PT 14.3 Seconds (9.4-12.1) H 08/22/17 04:24 - Attending Attestation I conducted a face to face diagnostic evaluation of this patient and my medical decision-making was reviewed with the Resident Physician, Dr Kip Hobbs. I agree with the documented findings, disposition and treatment plan as described except to the extent set forth below: Patient's mental status is improved. Abdomen is soft, nontender nondistended. She has severe C. difficile and therefore will start oral vancomycin. Continue with Zosyn. Stop Levaquin.
[2017-08-23] MEDS ORDERED: Ringers Solution, Lactated 500 ML IVC ONE (14:16)
[2017-08-23] MEDS: Vancomycin Oral Soln 250 MG/5 ML UDC PO SCH ×3 (14:50→21:32)
[2017-08-23] MEDS ORDERED: Vancomycin 750 MG in D5% in Water 250 ML IVPB SCH (16:00)
[2017-08-23] MEDS: Vancomycin 750 MG in D5% in Water 250 ML IVPB SCH (19:44)
[2017-08-23] MEDS ORDERED: traZODone 50 MG TABLET PO PRN (21:08)
[2017-08-23] MEDS: *HR* HYDROcodone/Acet 5/325 mg TABLET PO PRN (21:31)
[2017-08-23] MEDS ORDERED: Levofloxacin 500 MG/100 ML 500 MG/100 ML BAG IVPB SCH (22:00)
[2017-08-23] MEDS ORDERED: Levofloxacin 750 MG/150 ML 750 MG/150 ML BAG IVPB SCH (22:00)
[2017-08-23 23:45] LABS: ABG Base Excess -5 mEq/L (-2 to 3); ABG HCO3 25 mEq/L (21-27); ABG Oxygen Saturation 99 % (95-98); ABG PCO2 75 mmHg (35-45); ABG PH 7.14 pH Units (7.32-7.45); ABG PO2 211 mmHg (85-104); ABG TCO2 28 mEq/L (20-26); Blood Gas PEEP 6 cm H2O
[2017-08-24 00:38] LABS: ABG Base Excess -3 mEq/L (-2 to 3); ABG HCO3 25 mEq/L (21-27); ABG Oxygen Saturation 91 % (95-98); ABG PCO2 57 mmHg (35-45); ABG PH 7.25 pH Units (7.32-7.45); ABG PO2 73 mmHg (85-104); ABG TCO2 27 mEq/L (20-26); Blood Gas PEEP 6 cm H2O; Blood Gas Pressure Support 25 cm H2O; Blood Gas VT 450 cc
[2017-08-24] MEDS: Piperacillin/Tazobactam 3.375 GM/200 ML BAG IVPB SCH ×3 (01:25→16:05)
[2017-08-24] MEDS: Ipratropium/Albuterol Neb 3 ML IH SCH ×6 (04:07→23:54)
[2017-08-24 04:14] LABS: ABG Base Excess -2 mEq/L (-2 to 3); ABG HCO3 25 mEq/L (21-27); ABG Oxygen Saturation 99 % (95-98); ABG PCO2 50 mmHg (35-45); ABG PO2 139 mmHg (85-104); ABG TCO2 26 mEq/L (20-26); Blood Gas PEEP 6 cm H2O; Blood Gas Pressure Support 25 cm H2O; Blood Gas VT 450 cc
[2017-08-24] MEDS: *HR* Heparin 5,000 UNIT/ML VIAL SQ SCH ×2 (06:18→16:55)
[2017-08-24 06:24] LABS: Basophils % 0.3 %; Eosinophils % 0.4 %; Hematocrit 27.6 % (35.3-44.9); Hemoglobin 8.8 g/dL (11.5-15.4); Immature Granulocytes % 2.4 % (0-4); Lymphocytes # 1.1 K/mcL (0.6-4.6); Lymphocytes % 10.5 %; Mean Corpuscular HGB Conc 31.9 g/dL (31.6-35.5); Mean Corpuscular Hemoglobin 30.2 pg (28.0-33.3); Mean Corpuscular Volume 94.8 fL (83.0-100.0); Mean Platelet Volume 10.3 fL (9.4-12.4); Monocytes # 0.7 K/mcL (0.0-1.3); Monocytes % 6.9 %; Neutrophils # 8.4 K/mcL (1.6-8.9); Platelet Count 145 K/mcL (140-400); Red Blood Count 2.91 M/mcL (3.82-4.97); Red Cell Distribution Width 15.9 % (11.5-14.5); Segmented Neutrophils % 79.5 %
[2017-08-24 06:31] LABS: Albumin 2.1 g/dL (3.5-5.0); Albumin/Globulin Ratio 0.4 (1.1-2.2); Bilirubin,Total 0.8 mg/dL (0.2-1.2); Calcium 8.2 mg/dL (8.6-10.8); Globulin 4.7 g/dL (2.4-3.5); Potassium 4.3 mEq/L (3.5-4.5); Total Protein 6.8 g/dL (6.0-8.3)
--- NOTE | 2017-08-24 06:47 | Event Note ---
Date of Encounter: 08/24/17 Time of Encounter: 06:42 Patient was seen on multiple occasion during the evening of August 23 and early childhood worker of August 24 upon request of RN. Resident Dr. Gupta was also available to evaluate the patient. Apparently patient was having respiratory trouble and was given BiPAP at night . Attending hospitalist this morning the patient off BiPAP. Patient's lip into respiratory failure again and her ABGs reflected hypercapnic hypoxemic and uncompensated respiratory failure with pH of only 7.14. Patient was transferred to ICU with an intention to intubate her for respiratory support as she already had 2-3 hours of BiPAP before this ABG. It was noted that BiPAP was not applied correctly and respiratory was asked to cover for the leak. As BiPAP was appropriately placed within an hour patient woke up and he started responding. Therefore intubation was postponed and patient was continued on BiPAP. I will add duo nebs to her treatment. In the early childhood worker hours ICU needs bad and it seems like patient repeat ABG this morning is getting close to her baseline. I would strongly recommend not to discontinue BiPAP abruptly but rather give her a trial of 12 hours of BiPAP at night at least to see if her respiratory status improves and her pulmonary endurance is at a level where she can support respiratory function at extended period
[2017-08-24] MEDS: Fluticasone Propionate Nasal 50 MCG/SPRAY BOTTLE NS SCH (08:56)
[2017-08-24] MEDS: methylPREDNISolone 125 MG/2 ML VIAL IVP SCH ×2 (08:57→16:04)
[2017-08-24] MEDS: Vancomycin Oral Soln 250 MG/5 ML UDC PO SCH ×4 (08:58→20:40)
[2017-08-24] MEDS: Insulin LISPRO 300 UNITS/3 ML VIAL SQ SCH ×4 (09:05→21:31)
--- NOTE | 2017-08-24 09:28 | Internal Med Progress Note ---
<Kip Hobbs - Last Filed: 08/24/17 15:48> Date of Encounter: 08/24/17 Time of Encounter: 09:26 - Assessment and plan (1) Sepsis Current Visit: Yes Status: Acute Assessment and plan: Patient presented with leukocytosis, fever which persists. Secondary to UTI and pneumonia. Lactic acid has been normal. Patient received adequate fluid hydration. Cultures are pending. + c. diff, patient is on IV vancomycin, oral vancomycin and IV Zosyn. Levaquin and Flagyl discontinued Qualifiers: Sepsis type: sepsis due to unspecified organism Qualified Code(s): A41.9 - Sepsis, unspecified organism (2) HCAP (healthcare-associated pneumonia) Current Visit: Yes Status: Acute Assessment and plan: Right lower lobe infiltrate seen on chest x-ray. She resides in a snf putting her at risk for resistant organisms. Strep and legionella urinary antigens were negative. Rapid flu test was negative. We will attempt to obtain a sputum culture and tailor antibiotics based on culture results Continue antibiotics as above. Patient developed respiratory acidosis last night, pH 7.14 PCO2 75. She was transferred to the ICU with intention to intubate however was discovered that she had a leak in her BiPAP, this was corrected and patient's blood gas is trending back towards normal (3) UTI (urinary tract infection) Current Visit: Yes Status: Acute Assessment and plan: Patient has evidence of urinary tract infection on UA with large leukocyte esterase, bacteria seen on Micro. Legionella and strep pneumo antigens negative. Culture pending, continue antibiotics as above. Qualifiers: Urinary tract infection type: acute cystitis Hematuria presence: with hematuria Qualified Code(s): N30.01 - Acute cystitis with hematuria (4) Diarrhea Current Visit: Yes Status: Acute Assessment and plan: Patient is having continual diarrhea. She did have antibiotics 3 weeks ago and resides in a snf Lab resulted positive for C. difficile, continue Abx as above Qualifiers: Diarrhea type: unspecified type Qualified Code(s): R19.7 - Diarrhea, unspecified (5) Decubitus ulcer Current Visit: Yes Status: Acute Assessment and plan: Present on admission. No evidence of infection. Turn the patient every 2 hours , wound care per nursing protocol. 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 No new neurologic deficits. (7) HTN (hypertension) Current Visit: Yes Status: Chronic Assessment and plan: Stable. Continue to monitor. Qualifiers: Hypertension type: essential hypertension Qualified Code(s): I10 - Essential (primary) hypertension (8) DVT prophylaxis Current Visit: Yes Status: Acute Assessment and plan: Heparin 5000 units subcutaneous twice a day. - Subjective Interval history: Patient seen and examined at bedside this morning. She is alert and oriented to person and place and engages in conversation more so than yesterday. She denies current chest pain, shortness of breath or other new complaints - Constitutional Vitals: Temp Pulse Resp BP Pulse Ox 97.8 F 96 16 163/75 95 08/24/17 06:43 08/24/17 06:43 08/24/17 08:12 08/24/17 06:43 08/24/17 08:12 General appearance: Present: A&O X 2, no acute distress - Respiratory Respiratory exam: Present: rhonchi. Absent: accessory muscle use, rales, wheezes - Cardiovascular Cardiovascular exam: Present: RRR, +S1, +S2. Absent: diastolic murmur, gallop, rubs, systolic murmur - GI/Abdominal GI/Abdominal exam: Present: normal bowel sounds, soft, no peritoneal signs. Absent: distended, tenderness - Neurological Exam Neurological exam: Present: alert Internal Medicine: Result - Labs CBC & Chem 7: 08/24/17 06:01 08/24/17 06:01 Labs: Short CBC 08/24/17 Range/Units 06:01 WBC 10.5 (4.3-11.1) K/mcL Hgb 8.8 L (11.5-15.4) g/dL Hct 27.6 L (35.3-44.9) % Plt Count 145 (140-400) K/mcL Neutrophils # 8.4 (1.6-8.9) K/mcL BMP 08/24/17 06:01 Sodium 136 Potassium 4.3 Chloride 105 Carbon Dioxide 18 L BUN 33 H Creatinine 1.62 H Glucose 117 H Calcium 8.2 L Liver Function 08/24/17 Range/Units 06:01 Total Bilirubin 0.8 (0.2-1.2) mg/dL AST 25 (5-34) Units/L ALT 13 (0-55) Units/L Alkaline Phosphatase 62 (38-126) Units/L Albumin 2.1 L (3.5-5.0) g/dL - ABG Interpretation ABG results: ABG ABG pH 7.30 pH Units (7.32-7.45) L 08/24/17 04:09 ABG pCO2 50 mmHg (35-45) H 08/24/17 04:09 ABG pO2 139 mmHg (85-104) H D 08/24/17 04:09 ABG O2 Saturation 99 % (95-98) H 08/24/17 04:09 PT/INR, D-dimer PT 14.3 Seconds (9.4-12.1) H 08/22/17 04:24 Consult Discharge Plan - Plan Referrals: NONE,PCP [Non-Partnered Physician] - (patient is from [facility]) <Hector Downey - Last Filed: 08/24/17 17:12> Date of Encounter: 08/24/17 - Constitutional Vitals: Temp Pulse Resp BP Pulse Ox 101.4 F H 85 17 119/62 96 08/24/17 15:34 08/24/17 15:34 08/24/17 15:34 08/24/17 15:34 08/24/17 15:34 Internal Medicine: Result - Labs CBC & Chem 7: 08/24/17 06:01 08/24/17 06:01 Labs: Short CBC 08/24/17 Range/Units 06:01 WBC 10.5 (4.3-11.1) K/mcL Hgb 8.8 L (11.5-15.4) g/dL Hct 27.6 L (35.3-44.9) % Plt Count 145 (140-400) K/mcL Neutrophils # 8.4 (1.6-8.9) K/mcL BMP 08/24/17 06:01 Sodium 136 Potassium 4.3 Chloride 105 Carbon Dioxide 18 L BUN 33 H Creatinine 1.62 H Glucose 117 H Calcium 8.2 L Liver Function 08/24/17 Range/Units 06:01 Total Bilirubin 0.8 (0.2-1.2) mg/dL AST 25 (5-34) Units/L ALT 13 (0-55) Units/L Alkaline Phosphatase 62 (38-126) Units/L Albumin 2.1 L (3.5-5.0) g/dL - ABG Interpretation ABG results: ABG ABG pH 7.30 pH Units (7.32-7.45) L 08/24/17 04:09 ABG pCO2 50 mmHg (35-45) H 08/24/17 04:09 ABG pO2 139 mmHg (85-104) H D 08/24/17 04:09 ABG O2 Saturation 99 % (95-98) H 08/24/17 04:09 PT/INR, D-dimer PT 14.3 Seconds (9.4-12.1) H 08/22/17 04:24 - Attending Attestation I conducted a face to face diagnostic evaluation of this patient and my medical decision-making was reviewed with the Resident Physician, Dr Kip Hobbs. I agree with the documented findings, disposition and treatment plan as described except to the extent set forth below: Patient is more alert this morning. On exam she is in no acute distress. Lung exam reveals bilateral rales and wheezes. Plan: IV steroids. Inhaled bronchodilators. Continue broad-spectrum IV antibiotics for pneumonia. Continue oral vancomycin for C. difficile. BiPAP at night and intermittent during the day to help work of breathing. I have discussed prognosis and goals of care with the patient's son and POA. He expressed his wish that his mother should not have CPR or ventilatory support in the case of cardiac or respiratory arrest. I will order DNR CCA DNI.
[2017-08-24] MEDS: Vancomycin 750 MG in D5% in Water 250 ML IVPB SCH (20:39)
[2017-08-25] MEDS: methylPREDNISolone 125 MG/2 ML VIAL IVP SCH ×2 (02:00→08:00)
[2017-08-25 02:47] LABS: Hematocrit 28.2 % (35.3-44.9); Lymphocytes # 0.6 K/mcL (0.6-4.6); Mean Corpuscular HGB Conc 31.9 g/dL (31.6-35.5); Mean Corpuscular Hemoglobin 30.3 pg (28.0-33.3); Mean Corpuscular Volume 94.9 fL (83.0-100.0); Mean Platelet Volume 10.3 fL (9.4-12.4); Platelet Count 171 K/mcL (140-400); Red Blood Count 2.97 M/mcL (3.82-4.97); Red Cell Distribution Width 15.3 % (11.5-14.5)
[2017-08-25 03:01] LABS: Albumin 2.2 g/dL (3.5-5.0); Albumin/Globulin Ratio 0.4 (1.1-2.2); Bilirubin,Total 0.5 mg/dL (0.2-1.2); Calcium 8.9 mg/dL (8.6-10.8); Globulin 4.9 g/dL (2.4-3.5); Potassium 4.4 mEq/L (3.5-4.5); Total Protein 7.1 g/dL (6.0-8.3)
[2017-08-25 03:44] LABS: Monocytes # 0.8 K/mcL (0.0-1.3); Neutrophils # 5.5 K/mcL (1.6-8.9); Platelet Estimate Normal (Normal)
[2017-08-25 03:45] LABS: Anisocytosis 1+ (Not Present); Large Platelets Present (Not Present)
[2017-08-25] MEDS: Ipratropium/Albuterol Neb 3 ML IH SCH ×6 (03:54→23:00)
[2017-08-25] MEDS: Piperacillin/Tazobactam 3.375 GM/200 ML BAG IVPB SCH ×3 (04:11→16:19)
[2017-08-25] MEDS: *HR* Heparin 5,000 UNIT/ML VIAL SQ SCH ×2 (06:16→17:13)
[2017-08-25] MEDS: Fluticasone Propionate Nasal 50 MCG/SPRAY BOTTLE NS SCH (08:00)
[2017-08-25] MEDS: Insulin LISPRO 300 UNITS/3 ML VIAL SQ SCH ×4 (08:01→21:15)
[2017-08-25] MEDS: Vancomycin Oral Soln 250 MG/5 ML UDC PO SCH ×4 (08:01→21:17)
--- NOTE | 2017-08-25 12:38 | Internal Med Progress Note ---
<Mingo Gonzales - Last Filed: 08/25/17 12:35> Date of Encounter: 08/25/17 Time of Encounter: 12:36 - Assessment and plan (1) Sepsis Current Visit: Yes Status: Acute Assessment and plan: Appears to be improving. Patient presented with leukocytosis, fever. Patient has been afebrile since yesterday afternoon. Secondary to UTI and pneumonia as well as c. diff colitis. Lactic acid has been normal. Patient received adequate fluid hydration. Cultures are pending. + c. diff, patient is on IV vancomycin, oral vancomycin and IV Zosyn. Qualifiers: Sepsis type: sepsis due to unspecified organism Qualified Code(s): A41.9 - Sepsis, unspecified organism (2) HCAP (healthcare-associated pneumonia) Current Visit: Yes Status: Acute Assessment and plan: Right lower lobe infiltrate seen on chest x-ray. [facility] putting her at risk for resistant organisms. Strep and legionella urinary antigens were negative. Rapid flu test was negative. We will attempt to obtain a sputum culture and tailor antibiotics based on culture results. Continue antibiotics as above. (3) UTI (urinary tract infection) Current Visit: Yes Status: Acute Assessment and plan: Urine culture positive for Klebsiella pneumoniae and Escherichia coli. Both are sensitive to Zosyn which will continue given her pneumonia which were concerned for multidrug resistant organisms. Qualifiers: Urinary tract infection type: acute cystitis Hematuria presence: with hematuria Qualified Code(s): N30.01 - Acute cystitis with hematuria (4) C. difficile colitis Current Visit: Yes Status: Acute Assessment and plan: History of positive for C. difficile toxin. Diarrhea appears to slow, white count improving, afebrile since yesterday afternoon. Continue vancomycin 250 mg by mouth 4 times a day. (5) Decubitus ulcer Current Visit: Yes Status: Acute Assessment and plan: Present on admission. No evidence of infection. Turn the patient every 2 hours , wound care per nursing protocol. 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 No new neurologic deficits. (7) HTN (hypertension) Current Visit: Yes Status: Chronic Assessment and plan: Stable. Continue to monitor. Qualifiers: Hypertension type: essential hypertension Qualified Code(s): I10 - Essential (primary) hypertension (8) DVT prophylaxis Current Visit: Yes Status: Acute Assessment and plan: Heparin 5000 units subcutaneous twice a day. - Subjective Interval history: Patient seen and examined at bedside. Patient states that she feels better today. She feels like her shortness of breath and cough are improved. Family is at bedside and they state that she looks better to them. She denies further diarrhea - Constitutional Vitals: Temp Pulse Resp BP Pulse Ox 98.1 F 98 18 118/69 91 08/25/17 11:36 08/25/17 11:36 08/25/17 11:36 08/25/17 11:36 08/25/17 11:36 General appearance: Present: A&O X 2, no acute distress - Respiratory Respiratory exam: Present: rhonchi (bilaterally). Absent: rales, respiratory distress, wheezes, tachypnea - Cardiovascular Cardiovascular exam: Present: RRR. Absent: gallop, rubs, systolic murmur - Extremities Exam Extremities exam: Present: warm. Absent: pedal edema, tenderness - Neurological Exam Neurological exam: Present: alert, CN II-XII intact, no focal deficits Additional comments: Chronic left-sided contractures with weakness, unchanged from baseline. Internal Medicine: Result - Labs CBC & Chem 7: 08/25/17 02:30 08/25/17 02:30 Labs: Short CBC 08/25/17 Range/Units 02:30 WBC 6.9 (4.3-11.1) K/mcL Hgb 9.0 L (11.5-15.4) g/dL Hct 28.2 L (35.3-44.9) % Plt Count 171 (140-400) K/mcL Neutrophils # 5.5 (1.6-8.9) K/mcL BMP 08/25/17 02:30 Sodium 136 Potassium 4.4 Chloride 104 Carbon Dioxide 23 BUN 39 H Creatinine 1.78 H Glucose 175 H Calcium 8.9 Liver Function 08/25/17 Range/Units 02:30 Total Bilirubin 0.5 (0.2-1.2) mg/dL AST 20 (5-34) Units/L ALT 13 (0-55) Units/L Alkaline Phosphatase 66 (38-126) Units/L Albumin 2.2 L (3.5-5.0) g/dL - ABG Interpretation ABG results: ABG ABG pH 7.30 pH Units (7.32-7.45) L 08/24/17 04:09 ABG pCO2 50 mmHg (35-45) H 08/24/17 04:09 ABG pO2 139 mmHg (85-104) H D 08/24/17 04:09 ABG O2 Saturation 99 % (95-98) H 08/24/17 04:09 PT/INR, D-dimer PT 14.3 Seconds (9.4-12.1) H 08/22/17 04:24 Consult Discharge Plan - Plan Referrals: NONE,PCP [Non-Partnered Physician] - (patient is from [facility]) <Hector Downey - Last Filed: 08/25/17 16:22> Date of Encounter: 08/25/17 - Constitutional Vitals: Temp Pulse Resp BP Pulse Ox 98.1 F 98 17 118/69 92 08/25/17 11:36 08/25/17 11:36 08/25/17 15:40 08/25/17 11:36 08/25/17 15:40 Internal Medicine: Result - Labs CBC & Chem 7: 08/25/17 02:30 08/25/17 02:30 Labs: Short CBC 08/25/17 Range/Units 02:30 WBC 6.9 (4.3-11.1) K/mcL Hgb 9.0 L (11.5-15.4) g/dL Hct 28.2 L (35.3-44.9) % Plt Count 171 (140-400) K/mcL Neutrophils # 5.5 (1.6-8.9) K/mcL BMP 08/25/17 02:30 Sodium 136 Potassium 4.4 Chloride 104 Carbon Dioxide 23 BUN 39 H Creatinine 1.78 H Glucose 175 H Calcium 8.9 Liver Function 08/25/17 Range/Units 02:30 Total Bilirubin 0.5 (0.2-1.2) mg/dL AST 20 (5-34) Units/L ALT 13 (0-55) Units/L Alkaline Phosphatase 66 (38-126) Units/L Albumin 2.2 L (3.5-5.0) g/dL - ABG Interpretation ABG results: ABG ABG pH 7.30 pH Units (7.32-7.45) L 08/24/17 04:09 ABG pCO2 50 mmHg (35-45) H 08/24/17 04:09 ABG pO2 139 mmHg (85-104) H D 08/24/17 04:09 ABG O2 Saturation 99 % (95-98) H 08/24/17 04:09 PT/INR, D-dimer PT 14.3 Seconds (9.4-12.1) H 08/22/17 04:24 - Attending Attestation I conducted a face to face diagnostic evaluation of this patient and my medical decision-making was reviewed with the Resident Physician, Dr. Mingo Gonzales. I agree with the documented findings, disposition and treatment plan as described except to the extent set forth below: She did have hypercarbic respiratory failure during this admission not corrected with BiPAP. We will continue to use BiPAP daily at bedtime and as needed for increased work of breathing.
--- NOTE | 2017-08-25 13:42 | Electrocardiograph Report ---
[address] [place] [address] Test Date: 2017-08-24 Pat Name: Mariaelena Barriga Department: 112 Room: 2A11 Gender: F Machine Splitter: CALIN : 1930 Requested By: America Maria Order Number: [id number] Reading MD: Aurora Fletcher Measurements Intervals [place] Rate: 111 P: 44 W[place]: 180 QRS: -68 QRSD: 118 T: 49 QT: 322 QTc: 387 Interpretive Statements SINUS TACHYCARDIA LOW QRS VOLTAGE IN PRECORDIAL LEADS INCOMPLETE RIGHT BUNDLE BRANCH BLOCK LEFT ANTERIOR FASCICULAR BLOCK INFERIOR MYOCARDIAL INFARCTION, PROBABLY OLD Electronically Signed On 08-25-2017 13:40:50 EST by Aurora Fletcher
[2017-08-25] MEDS: MethylPREDNISolone 40 MG/ML VIAL IVP SCH (17:13)
[2017-08-25] MEDS: Vancomycin 750 MG in D5% in Water 250 ML IVPB SCH (21:17)
[2017-08-26] MEDS: Ipratropium/Albuterol Neb 3 ML IH SCH ×6 (03:41→23:39)
[2017-08-26] MEDS: *HR* Heparin 5,000 UNIT/ML VIAL SQ SCH ×2 (05:46→17:12)
[2017-08-26] MEDS: MethylPREDNISolone 40 MG/ML VIAL IVP SCH (05:46)
[2017-08-26] MEDS: Piperacillin/Tazobactam 3.375 GM/200 ML BAG IVPB SCH ×2 (05:47→17:13)
[2017-08-26 06:35] LABS: Calcium 9.2 mg/dL (8.6-10.8); Potassium 4.3 mEq/L (3.5-4.5)
[2017-08-26 06:58] LABS: Mean Corpuscular Hemoglobin 29.7 pg (28.0-33.3); Mean Corpuscular Volume 95.7 fL (83.0-100.0); Mean Platelet Volume 10.5 fL (9.4-12.4); Platelet Count 225 K/mcL (140-400); Red Blood Count 3.03 M/mcL (3.82-4.97); Red Cell Distribution Width 15.3 % (11.5-14.5)
[2017-08-26 07:24] LABS: Lymphocytes # 0.5 K/mcL (0.6-4.6); Monocytes # 0.2 K/mcL (0.0-1.3); Neutrophils # 10.9 K/mcL (1.6-8.9); Platelet Estimate Normal (Normal)
--- NOTE | 2017-08-26 08:07 | Internal Med Progress Note ---
<Mingo Gonzales - Last Filed: 08/26/17 08:05> Date of Encounter: 08/26/17 Time of Encounter: 08:05 - Assessment and plan (1) Sepsis Current Visit: Yes Status: Acute Assessment and plan: Continues to improve. Patient presented with leukocytosis, fever. Patient has been afebrile for 36hours. Mild increase in her leukocytosis today, possibly related to steroid use as she continues to improve clinically. Secondary to UTI and pneumonia as well as c. diff colitis. Lactic acid has been normal. Patient received adequate fluid hydration. Cultures are pending. + c. diff, patient is on IV vancomycin, oral vancomycin and IV Zosyn. Qualifiers: Sepsis type: sepsis due to unspecified organism Qualified Code(s): A41.9 - Sepsis, unspecified organism (2) HCAP (healthcare-associated pneumonia) Current Visit: Yes Status: Acute Assessment and plan: Right lower lobe infiltrate seen on chest x-ray. She resides in a snf putting her at risk for resistant organisms. Strep and legionella urinary antigens were negative. Rapid flu test was negative. We will attempt to obtain a sputum culture and tailor antibiotics based on culture results. Continue antibiotics as above. (3) UTI (urinary tract infection) Current Visit: Yes Status: Acute Assessment and plan: Urine culture positive for Klebsiella pneumoniae and Escherichia coli. Both are sensitive to Zosyn which will continue given her pneumonia which were concerned for multidrug resistant organisms. Qualifiers: Urinary tract infection type: acute cystitis Hematuria presence: with hematuria Qualified Code(s): N30.01 - Acute cystitis with hematuria (4) C. difficile colitis Current Visit: Yes Status: Acute Assessment and plan: History of positive for C. difficile toxin. Diarrhea appears to slow, white count slightly worse, likely related to steroids, afebrile since yesterday afternoon. Continue vancomycin 250 mg by mouth 4 times a day. (5) CKD (chronic kidney disease) stage 3, GFR 30-59 ml/min Current Visit: Yes Status: Acute Assessment and plan: Patient mild increase in her creatinine over the last several days that has returned to normal today, possibly due to dehydration or antibiotic use. Patient has good urine output. Continue to monitor. (6) Decubitus ulcer Current Visit: Yes Status: Acute Assessment and plan: Present on admission. No evidence of infection. Turn the patient every 2 hours , wound care per nursing protocol. 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 No new neurologic deficits. (8) HTN (hypertension) Current Visit: Yes Status: Chronic Assessment and plan: Stable. Continue to monitor. Qualifiers: Hypertension type: essential hypertension Qualified Code(s): I10 - Essential (primary) hypertension (9) DVT prophylaxis Current Visit: Yes Status: Acute Assessment and plan: Heparin 5000 units subcutaneous twice a day. - Subjective Interval history: Patient seen and examined at bedside. Patient states that she feels better today. She states that she did not get any sleep last night due to multiple interruptions She feels like her shortness of breath and cough are improved. Family is at bedside and they state that she looks much better to them. She denies further diarrhea - Constitutional Vitals: Temp Pulse Resp BP Pulse Ox 98.4 F 84 17 150/74 93 08/25/17 23:42 08/25/17 23:42 08/25/17 23:42 08/25/17 23:42 08/25/17 23:42 General appearance: Present: cooperative, A&O X 2, pleasant, no acute distress - Respiratory Respiratory exam: Present: decreased breath sounds. Absent: rales, rhonchi, wheezes - Cardiovascular Cardiovascular exam: Present: RRR. Absent: gallop, rubs, systolic murmur - GI/Abdominal GI/Abdominal exam: Present: normal bowel sounds, soft. Absent: distended, tenderness - Extremities Exam Extremities exam: Present: pedal edema (trace), warm. Absent: tenderness - Neurological Exam Neurological exam: Present: alert, CN II-XII intact Additional comments: Chronic left-sided contractures with weakness. No new deficits. Internal Medicine: Result - Labs CBC & Chem 7: 08/26/17 06:10 08/26/17 06:10 Labs: Short CBC 08/26/17 Range/Units 06:10 WBC 11.6 H D (4.3-11.1) K/mcL Hgb 9.0 L (11.5-15.4) g/dL Hct 29.0 L (35.3-44.9) % Plt Count 225 (140-400) K/mcL Neutrophils # 10.9 H (1.6-8.9) K/mcL BMP 08/26/17 06:10 Sodium 139 Potassium 4.3 Chloride 108 Carbon Dioxide 21 BUN 42 H Creatinine 1.26 H Glucose 103 H Calcium 9.2 - ABG Interpretation ABG results: ABG ABG pH 7.30 pH Units (7.32-7.45) L 08/24/17 04:09 ABG pCO2 50 mmHg (35-45) H 08/24/17 04:09 ABG pO2 139 mmHg (85-104) H D 08/24/17 04:09 ABG O2 Saturation 99 % (95-98) H 08/24/17 04:09 PT/INR, D-dimer PT 14.3 Seconds (9.4-12.1) H 08/22/17 04:24 Consult Discharge Plan - Plan Referrals: NONE,PCP [Non-Partnered Physician] - (patient is from [facility]) <Hector Downey - Last Filed: 08/26/17 14:52> Date of Encounter: 08/26/17 - Constitutional Vitals: Temp Pulse Resp BP Pulse Ox 98.2 F 72 22 157/95 93 08/26/17 12:07 08/26/17 12:07 08/26/17 13:17 08/26/17 12:07 08/26/17 13:17 Internal Medicine: Result - Labs CBC & Chem 7: 08/26/17 06:10 08/26/17 06:10 Labs: Short CBC 08/26/17 Range/Units 06:10 WBC 11.6 H D (4.3-11.1) K/mcL Hgb 9.0 L (11.5-15.4) g/dL Hct 29.0 L (35.3-44.9) % Plt Count 225 (140-400) K/mcL Neutrophils # 10.9 H (1.6-8.9) K/mcL BMP 08/26/17 06:10 Sodium 139 Potassium 4.3 Chloride 108 Carbon Dioxide 21 BUN 42 H Creatinine 1.26 H Glucose 103 H Calcium 9.2 - ABG Interpretation ABG results: ABG ABG pH 7.30 pH Units (7.32-7.45) L 08/24/17 04:09 ABG pCO2 50 mmHg (35-45) H 08/24/17 04:09 ABG pO2 139 mmHg (85-104) H D 08/24/17 04:09 ABG O2 Saturation 99 % (95-98) H 08/24/17 04:09 PT/INR, D-dimer PT 14.3 Seconds (9.4-12.1) H 08/22/17 04:24 - Attending Attestation I conducted a face to face diagnostic evaluation of this patient and my medical decision-making was reviewed with the Resident Physician, Dr. Mingo Gonzales. I agree with the documented findings, disposition and treatment plan as described except to the extent set forth below: On examination she is more alert than she was yesterday. Heart is regular lung auscultation reveals expiratory wheezes. Abdomen is soft. Continue with oral and IV antibiotics. Continue inhaled bronchodilators.
[2017-08-26] MEDS ORDERED: Aminoglycoside Consult 1 EACH MC ONE (08:37)
[2017-08-26] MEDS: predniSONE 20 MG TABLET PO SCH (09:41)
[2017-08-26] MEDS: Fluticasone Propionate Nasal 50 MCG/SPRAY BOTTLE NS SCH (09:41)
[2017-08-26] MEDS: Vancomycin Oral Soln 250 MG/5 ML UDC PO SCH ×4 (09:41→22:49)
[2017-08-26] MEDS: Insulin LISPRO 300 UNITS/3 ML VIAL SQ SCH ×4 (09:44→22:49)
[2017-08-26] MEDS: Acetaminophen 325 MG TABLET PO PRN (13:02)
[2017-08-26] MEDS: *HR* LORazepam 2 MG/ML VIAL IVP PRN (15:29)
[2017-08-26] MEDS: Vancomycin 750 MG in D5% in Water 250 ML IVPB SCH (20:07)
[2017-08-27] MEDS: Ipratropium/Albuterol Neb 3 ML IH SCH ×7 (03:18→23:12)
[2017-08-27 04:57] LABS: Hematocrit 28.2 % (35.3-44.9); Mean Corpuscular HGB Conc 31.9 g/dL (31.6-35.5); Mean Corpuscular Hemoglobin 29.8 pg (28.0-33.3); Mean Corpuscular Volume 93.4 fL (83.0-100.0); Mean Platelet Volume 10.1 fL (9.4-12.4); Monocytes # 0.6 K/mcL (0.0-1.3); Nucleated Red Blood Cells 0.2 /100 WBC (0); Platelet Count 220 K/mcL (140-400); Red Blood Count 3.02 M/mcL (3.82-4.97); Red Cell Distribution Width 15.3 % (11.5-14.5)
[2017-08-27] MEDS: Piperacillin/Tazobactam 3.375 GM/200 ML BAG IVPB SCH ×2 (05:01→16:17)
[2017-08-27] MEDS: *HR* Heparin 5,000 UNIT/ML VIAL SQ SCH ×2 (05:04→18:48)
[2017-08-27 05:07] LABS: Calcium 8.8 mg/dL (8.6-10.8); Magnesium 1.9 mg/dL (1.6-2.6); Potassium 4.2 mEq/L (3.5-4.5)
[2017-08-27 05:29] LABS: Neutrophils # 8.7 K/mcL (1.6-8.9); Platelet Estimate Normal (Normal); Reactive Lymphocytes Present (Not Present)
[2017-08-27 05:30] LABS: Anisocytosis 1+ (Not Present); Polychromasia 1+ (Not Present)
[2017-08-27] MEDS: Insulin LISPRO 300 UNITS/3 ML VIAL SQ SCH ×4 (09:15→21:51)
[2017-08-27] MEDS: predniSONE 20 MG TABLET PO SCH (09:26)
[2017-08-27] MEDS: Fluticasone Propionate Nasal 50 MCG/SPRAY BOTTLE NS SCH (09:29)
[2017-08-27] MEDS: Vancomycin Oral Soln 250 MG/5 ML UDC PO SCH ×4 (09:57→20:20)
--- NOTE | 2017-08-27 15:40 | Internal Med Progress Note ---
<Mingo Gonzales - Last Filed: 08/27/17 15:48> Date of Encounter: 08/27/17 Time of Encounter: 15:38 - Assessment and plan (1) Acute respiratory failure Current Visit: Yes Status: Acute Assessment and plan: Improving, secondary to pneumonia. Continue supplemental oxygen. Attempt to wean off. Qualifiers: Respiratory failure complication: hypoxia and hypercapnia Qualified Code(s) : J96.01 - Acute respiratory failure with hypoxia; J96.02 - Acute respiratory failure with hypercapnia; J96.02 - Acute respiratory failure with hypercapnia; J96.02 - Acute respiratory failure with hypercapnia (2) Sepsis Current Visit: Yes Status: Acute Assessment and plan: Continues to improve. Patient presented with leukocytosis, fever. Patient has been afebrile for 3 days now. Leukocytosis has resolved. Secondary to UTI and pneumonia as well as c. diff colitis. Lactic acid has been normal. Patient received adequate fluid hydration. Cultures are pending. + c. diff, patient is on IV vancomycin, oral vancomycin and IV Zosyn. Will DC IV vancomycin and IV Zosyn patient completed a seven-day course. We will transition to Ceftin for a total 14 days of treatment. Qualifiers: Sepsis type: sepsis due to unspecified organism Qualified Code(s): A41.9 - Sepsis, unspecified organism (3) HCAP (healthcare-associated pneumonia) Current Visit: Yes Status: Acute Assessment and plan: Right lower lobe infiltrate seen on chest x-ray. Likely bacterial but no specific source has been elicited. She resides in a custodial putting her at risk for resistant organisms. Strep and legionella urinary antigens were negative. Rapid flu test was negative. We will attempt to obtain a sputum culture and tailor antibiotics based on culture results. Continue antibiotics as above. (4) UTI (urinary tract infection) Current Visit: Yes Status: Acute Assessment and plan: Urine culture positive for Klebsiella pneumoniae and Escherichia coli. Will transition to ceftin as discussed above. Qualifiers: Urinary tract infection type: acute cystitis Hematuria presence: with hematuria Qualified Code(s): N30.01 - Acute cystitis with hematuria (5) C. difficile colitis Current Visit: Yes Status: Acute Assessment and plan: History of positive for C. difficile toxin. Diarrhea appears to slow, white count slightly worse, likely related to steroids, afebrile since yesterday afternoon. Continue vancomycin 250 mg by mouth 4 times a day. (6) CKD (chronic kidney disease) stage 3, GFR 30-59 ml/min Current Visit: Yes Status: Chronic (7) Decubitus ulcer Current Visit: Yes Status: Acute Assessment and plan: Present on admission. No evidence of infection. Turn the patient every 2 hours , wound care per nursing protocol. Qualifiers: Pressure ulcer location: sacral region Pressure ulcer stage: stage 2 Qualified Code(s): L89.152 - Pressure ulcer of sacral region, stage 2 (8) History of CVA (cerebrovascular accident) Current Visit: Yes Status: Chronic Assessment and plan: Patient has a history of left-sided contractures secondary to CVA. No new neurologic deficits. (9) HTN (hypertension) Current Visit: Yes Status: Chronic Assessment and plan: Stable. Continue to monitor. Qualifiers: Hypertension type: essential hypertension Qualified Code(s): I10 - Essential (primary) hypertension (10) DVT prophylaxis Current Visit: Yes Status: Acute Assessment and plan: Heparin 5000 units subcutaneous twice a day. (11) CHF (congestive heart failure) Current Visit: Yes Status: Ruled-out Assessment and plan: Patient does not appear to have heart failure. No objective evidence of heart failure Qualifiers: Congestive heart failure type: unspecified congestive heart failure type Congestive heart failure chronicity: unspecified congestive heart failure chronicity Qualified Code(s): I50.9 - Heart failure, unspecified - Subjective Interval history: Patient seen and examined at bedside. Patient states that she feels better today. She continues to have a difficult time sleeping. She feels like her shortness of breath and cough continued to improve. Family is at bedside and they state that she looks much better to them. She denies further diarrhea - Constitutional Vitals: Temp Pulse Resp BP Pulse Ox 98.6 F 89 17 148/78 98 08/27/17 12:06 08/27/17 12:06 08/27/17 12:06 08/27/17 12:06 08/27/17 12:06 General appearance: Present: cooperative, A&O X 2, pleasant, no acute distress - Respiratory Respiratory exam: Present: rhonchi (Improved from yesterday). Absent: respiratory distress, wheezes, tachypnea - Cardiovascular Cardiovascular exam: Present: RRR. Absent: gallop, rubs, systolic murmur - GI/Abdominal GI/Abdominal exam: Present: normal bowel sounds, soft. Absent: distended, tenderness - Extremities Exam Extremities exam: Present: pedal edema. Absent: tenderness, warm - Neurological Exam Neurological exam: Present: alert, CN II-XII intact Additional comments: Chronic left-sided contractures with weakness. No acute changes. Internal Medicine: Result - Labs CBC & Chem 7: 08/27/17 04:46 08/27/17 04:46 Labs: Short CBC 08/27/17 Range/Units 04:46 WBC 10.4 (4.3-11.1) K/mcL Hgb 9.0 L (11.5-15.4) g/dL Hct 28.2 L (35.3-44.9) % Plt Count 220 (140-400) K/mcL Neutrophils # 8.7 (1.6-8.9) K/mcL BMP 08/27/17 04:46 Sodium 139 Potassium 4.2 Chloride 107 Carbon Dioxide 22 BUN 38 H Creatinine 1.09 Glucose 90 Calcium 8.8 - ABG Interpretation ABG results: ABG ABG pH 7.30 pH Units (7.32-7.45) L 08/24/17 04:09 ABG pCO2 50 mmHg (35-45) H 08/24/17 04:09 ABG pO2 139 mmHg (85-104) H D 08/24/17 04:09 ABG O2 Saturation 99 % (95-98) H 08/24/17 04:09 PT/INR, D-dimer PT 14.3 Seconds (9.4-12.1) H 08/22/17 04:24 Consult Discharge Plan - Plan Referrals: NONE,PCP [Non-Partnered Physician] - ([facility] <Hector Downey - Last Filed: 08/27/17 19:40> Date of Encounter: 08/27/17 - Constitutional Vitals: Temp Pulse Resp BP Pulse Ox 98.5 F 88 18 160/72 94 08/27/17 19:13 08/27/17 19:13 08/27/17 19:13 08/27/17 19:13 08/27/17 19:13 Internal Medicine: Result - Labs CBC & Chem 7: 08/27/17 04:46 08/27/17 04:46 Labs: Short CBC 08/27/17 Range/Units 04:46 WBC 10.4 (4.3-11.1) K/mcL Hgb 9.0 L (11.5-15.4) g/dL Hct 28.2 L (35.3-44.9) % Plt Count 220 (140-400) K/mcL Neutrophils # 8.7 (1.6-8.9) K/mcL BMP 08/27/17 04:46 Sodium 139 Potassium 4.2 Chloride 107 Carbon Dioxide 22 BUN 38 H Creatinine 1.09 Glucose 90 Calcium 8.8 - ABG Interpretation ABG results: ABG ABG pH 7.30 pH Units (7.32-7.45) L 08/24/17 04:09 ABG pCO2 50 mmHg (35-45) H 08/24/17 04:09 ABG pO2 139 mmHg (85-104) H D 08/24/17 04:09 ABG O2 Saturation 99 % (95-98) H 08/24/17 04:09 PT/INR, D-dimer PT 14.3 Seconds (9.4-12.1) H 08/22/17 04:24 - Attending Attestation I conducted a face to face diagnostic evaluation of this patient and my medical decision-making was reviewed with the Resident Physician, Dr. Mingo Gonzales. I agree with the documented findings, disposition and treatment plan as described except to the extent set forth below: Patient is more alert today. Abdomen is soft, nontender nondistended. Plan: Continue with oral and IV antibiotics. Start PT OT. She is at high risk for sundowning and therefore will decrease stimulation at nighttime.
[2017-08-27] MEDS: *HR* LORazepam 2 MG/ML VIAL IVP PRN (16:17)
[2017-08-27] MEDS: Vancomycin 750 MG in D5% in Water 250 ML IVPB SCH (20:18)
[2017-08-27] MEDS ORDERED: Melatonin 3 MG TABLET PO ONE (21:00)
[2017-08-28] MEDS: Ipratropium/Albuterol Neb 3 ML IH SCH ×2 (03:24→07:26)
[2017-08-28] MEDS: *HR* Heparin 5,000 UNIT/ML VIAL SQ SCH (05:52)
[2017-08-28] MEDS ORDERED: Cefuroxime PO 500 MG TABLET PO SCH (07:00)
--- NOTE | 2017-08-28 07:58 | Discharge Summary ---
<Mingo Gonzales - Last Filed: 08/28/17 10:18> Date of Encounter: 08/28/17 Time of Encounter: 07:52 - Discharge Diagnosis (1) Acute respiratory failure Priority: Primary Status: Resolved Qualifiers: Respiratory failure complication: hypoxia and hypercapnia Qualified Code(s) : J96.01 - Acute respiratory failure with hypoxia; J96.02 - Acute respiratory failure with hypercapnia; J96.02 - Acute respiratory failure with hypercapnia; J96.02 - Acute respiratory failure with hypercapnia (2) Sepsis Priority: Primary Status: Acute Qualifiers: Sepsis type: sepsis due to unspecified organism Qualified Code(s): A41.9 - Sepsis, unspecified organism (3) HCAP (healthcare-associated pneumonia) Priority: Primary Status: Acute (4) UTI (urinary tract infection) Priority: Primary Status: Acute Qualifiers: Urinary tract infection type: acute cystitis Hematuria presence: with hematuria Qualified Code(s): N30.01 - Acute cystitis with hematuria (5) C. difficile colitis Priority: Primary Status: Acute (6) CKD (chronic kidney disease) stage 3, GFR 30-59 ml/min Priority: Secondary Status: Chronic (7) Decubitus ulcer Priority: Secondary Status: Chronic Qualifiers: Pressure ulcer location: sacral region Pressure ulcer stage: stage 2 Qualified Code(s): L89.152 - Pressure ulcer of sacral region, stage 2 (8) History of CVA (cerebrovascular accident) Priority: Secondary Status: Chronic (9) HTN (hypertension) Priority: Secondary Status: Chronic Qualifiers: Hypertension type: essential hypertension Qualified Code(s): I10 - Essential (primary) hypertension (10) CHF (congestive heart failure) Priority: Secondary Status: Ruled-out Qualifiers: Congestive heart failure type: unspecified congestive heart failure type Congestive heart failure chronicity: unspecified congestive heart failure chronicity Qualified Code(s): I50.9 - Heart failure, unspecified - Discharge Medications Prescriptions: HYDROcodone/Acet 5/325 mg [[place] 5-325 mg] 1 tab PO HS #15 tablet Home Medications: Cholecalciferol (Vitamin D3) [Vitamin D3] 50,000 unit PO QMONTH 07/14/16 [ History] Clopidogrel [Plavix] 75 mg PO DAILY 07/14/16 [History] Furosemide [Lasix] 20 mg PO DAILY 07/14/16 [History] Loratadine [Allergy Relief] 10 mg PO DAILY 07/14/16 [History] Menthol/Zinc Ox/Aloe/Carley Oil [Chamosyn Ointment] 1 appl TP TID 07/14/16 [ History] Multivit-Min/FA/Lycopen/Lutein [Centrum Silver Tablet] 1 each PO DAILY 07/14/16 [History] Sennosides [Senna] 8.6 mg PO DAILY PRN 07/14/16 [History] amLODIPine [Norvasc] 5 mg PO DAILY 07/14/16 [History] Acetaminophen [Tylenol] 650 mg PO Q6H PRN 08/25/16 [History] Ascorbate Calcium [Vitamin C] 500 mg PO DAILY 08/25/16 [History] Nystatin POWDER [Nystop] 1 appl TP BID PRN 08/25/16 [History] Ammonium Lactate [Mayra-Hydrolac] 1 appl TP BID 08/21/17 [History] Bisacodyl [Dulcolax] 10 mg RC AD PRN 08/21/17 [History] Magnesium Hydroxide [Milk of Magnesia] 2,400 mg PO DAILY PRN 08/21/17 [History] Oxygen 2 l NS AD 08/21/17 [History] Sertraline [Zoloft] 75 mg PO DAILY 08/21/17 [History] traZODone [TraZODone] 50 mg PO HS 08/21/17 [History] Cefuroxime PO [Ceftin] 500 mg PO Q12H #12 tablet 08/28/17 [Rx] HYDROcodone/Acet 5/325 mg [[place] 5-325 mg] 1 tab PO HS #15 tablet 08/28/17 [Rx] Ipratropium/Albuterol Neb [Duoneb] 3 ml IH [id number] PRN inhsol 08/28/17 [Rx] Vancomycin Oral Soln [Vancocin] 250 mg PO QID 8 Days udc 08/28/17 [Rx] predniSONE [PredniSONE] 40 mg PO DAILY 1 Days tablet 08/28/17 [Rx] Allergies/Adverse Reactions: 3 Allergy/AdvReac Type Severity Reaction Status Date / Time No Known Allergies Allergy Verified 11/27/15 14:21 Date of admission: 08/21/17 21:08 Primary care physician: Anand Alejo Consults: 08/22/17 07:51 Consult to Associate Professor Of Biostatistics [CONS] Routine Reason for SW Consult: return tradtions 08/24/17 10:41 Consult to Invasive Line Access Team [CONS] Routine Reason for Consult: poor access Line Type: EPIV Discharging clinician: Mingo Gonzales Anticipated date of discharge: 08/28/17 - Patient Status Disposition: Transfer SNF Condition: Fair Functional capacity at discharge: bed bound Overall status at discharge: patient is progressing back to baseline - Discharge Instructions Instructions: Urinary Tract Infection in Women (DC), Pneumonia (DC), Diabetic Hyperglycemia (DC) Follow Up With: NONE,PCP [Non-Partnered Physician] - (patient is from [facility]) Additional Instructions: Please complete your antibiotics as directed. Please resume her home medications. Please use oxygen as needed. Please return for any new or worsening symptoms. - Diet and Activity Activity: increase activity as tolerated Diet: advance to your usual diet Interval History: Patient seen and examined at bedside. She states that she feels pretty good this morning. She has no specific complaints. She denies shortness of breath, cough, abdominal pain. Hospital course: Ms. Barriga is a 87 year old female with history of CVA, hypertension who presented with cough, shortness of breath. Upon arrival she was found to have pneumonia and UTI. She started on broad-spectrum antibiotics with vancomycin and Zosyn. Trileptal admission she also was found to have diarrhea and C. difficile testing was positive. Patient was started on IV Flagyl that was transitioned to oral vancomycin. On day 3 of admission the patient had an episode of acute respiratory failure requiring BiPAP, this is resolved and the patient is normally on supplemental oxygen. The patient completed a seven-day course of IV vancomycin and IV Zosyn and was transitioned to Ceftin to complete 14 days of treatment. She also completed 14 days of oral vancomycin for C. difficile colitis. Patient will be discharged back to the care home in stable condition. - Time Spent with Patient Total time spent providing and/or coordinating discharge services: 40 minutes - Constitutional Vitals: Temp Pulse Resp BP Pulse Ox 98.4 F 73 24 163/84 94 08/28/17 01:17 08/28/17 01:17 08/28/17 07:28 08/28/17 01:17 08/28/17 07:28 General appearance: Present: cooperative, A&O X 3, pleasant, no acute distress - Respiratory Respiratory exam: Present: CTAB. Absent: rales, rhonchi, wheezes - Cardiovascular Cardiovascular exam: Present: RRR. Absent: gallop, rubs, systolic murmur - GI/Abdominal GI/Abdominal exam: Present: normal bowel sounds, soft. Absent: distended, tenderness - Extremities Exam Extremities exam: Present: pedal edema (trace), warm. Absent: tenderness - Neurological Exam Neurological exam: Present: alert, CN II-XII intact, oriented X3, no focal deficits Additional comments: Chronic left-sided contractures with weakness. No acute changes. <Gomez Butler H - Last Filed: 08/28/17 13:03> Date of Encounter: 08/28/17 Date of admission: 08/21/17 21:08 Primary care physician: Anand Alejo Consults: 08/22/17 07:51 Consult to Associate Professor Of Biostatistics [CONS] Routine Reason for SW Consult: return tradtions 08/24/17 10:41 Consult to Invasive Line Access Team [CONS] Routine Reason for Consult: poor access Line Type: EPIV Hospital course: Ms. Barriga is a 87 year old female - Time Spent with Patient Total time spent providing and/or coordinating discharge services: - Constitutional Vitals: Temp Pulse Resp BP Pulse Ox 98.5 F 69 16 162/72 93 08/28/17 07:54 08/28/17 07:54 08/28/17 07:54 08/28/17 07:54 08/28/17 07:54 - Attending Attestation Acute hypoxic hypercapnic respiratory failure secondary to sepsis due to healthcare associated pneumonia present upon admission /UTI I examined this patient and my medical decision-making was reviewed with the Resident Physician. I agree with the documented findings, disposition and treatment plan as described except to the extent set forth below.
[2017-08-28 08:00] VITALS: BP 162/72
--- NOTE | 2017-08-28 08:10 | Physician Discharge Referral ---
<Mingo Gonzales - Last Filed: 08/28/17 10:19> ExtendedCare Referral Info Transfer To: [facility] Institutional Level of Care: Skilled - Diagnosis (1) Acute respiratory failure Priority: Primary Status: Resolved (2) Sepsis Priority: Primary Status: Acute (3) HCAP (healthcare-associated pneumonia) Priority: Primary Status: Acute (4) UTI (urinary tract infection) Priority: Primary Status: Acute (5) C. difficile colitis Priority: Primary Status: Acute (6) CKD (chronic kidney disease) stage 3, GFR 30-59 ml/min Priority: Secondary Status: Chronic (7) Decubitus ulcer Priority: Secondary Status: Chronic (8) History of CVA (cerebrovascular accident) Priority: Secondary Status: Chronic (9) HTN (hypertension) Priority: Secondary Status: Chronic (10) CHF (congestive heart failure) Priority: Secondary Status: Ruled-out Prognosis: Fair Aware of Diagnosis: Patient, Family Aware of Prognosis: Patient, Family - Transfer Medications Prescriptions: HYDROcodone/Acet 5/325 mg [[place] 5-325 mg] 1 tab PO HS #15 tablet Home Medications: Cholecalciferol (Vitamin D3) [Vitamin D3] 50,000 unit PO QMONTH 07/14/16 [ History] Clopidogrel [Plavix] 75 mg PO DAILY 07/14/16 [History] Furosemide [Lasix] 20 mg PO DAILY 07/14/16 [History] Loratadine [Allergy Relief] 10 mg PO DAILY 07/14/16 [History] Menthol/Zinc Ox/Aloe/Carley Oil [Chamosyn Ointment] 1 appl TP TID 07/14/16 [ History] Multivit-Min/FA/Lycopen/Lutein [Centrum Silver Tablet] 1 each PO DAILY 07/14/16 [History] Sennosides [Senna] 8.6 mg PO DAILY PRN 07/14/16 [History] amLODIPine [Norvasc] 5 mg PO DAILY 07/14/16 [History] Acetaminophen [Tylenol] 650 mg PO Q6H PRN 08/25/16 [History] Ascorbate Calcium [Vitamin C] 500 mg PO DAILY 08/25/16 [History] Nystatin POWDER [Nystop] 1 appl TP BID PRN 08/25/16 [History] Ammonium Lactate [Mayra-Hydrolac] 1 appl TP BID 08/21/17 [History] Bisacodyl [Dulcolax] 10 mg RC AD PRN 08/21/17 [History] Magnesium Hydroxide [Milk of Magnesia] 2,400 mg PO DAILY PRN 08/21/17 [History] Oxygen 2 l NS AD 08/21/17 [History] Sertraline [Zoloft] 75 mg PO DAILY 08/21/17 [History] traZODone [TraZODone] 50 mg PO HS 08/21/17 [History] Cefuroxime PO [Ceftin] 500 mg PO Q12H #12 tablet 08/28/17 [Rx] HYDROcodone/Acet 5/325 mg [[place] 5-325 mg] 1 tab PO HS #15 tablet 08/28/17 [Rx] Ipratropium/Albuterol Neb [Duoneb] 3 ml IH [id number] PRN inhsol 08/28/17 [Rx] Vancomycin Oral Soln [Vancocin] 250 mg PO QID 8 Days udc 08/28/17 [Rx] predniSONE [PredniSONE] 40 mg PO DAILY 1 Days tablet 08/28/17 [Rx] Allergies/Adverse Reactions: 3 Allergy/AdvReac Type Severity Reaction Status Date / Time No Known Allergies Allergy Verified 11/27/15 14:21 - Respiratory Orders Oxygen / L per min (2 L as needed for O2 sat less than 90%) Smoking Cessation: Smoking cessation has been advised. For more information, call the [employer] Line at 5-761-RGTL-NOW. - Advance Directives Power of Forepart Rounder: Yes Code Status: DNR-Arrest/Don't Intubate - Mobility Orders Chair - Rehabiliation Orders Rehab Potential: Fair Rehab Orders: Evaluation for Physical Therapy, Evaluation for Occupational Therapy - Diet Orders Regular CERTIFICATION: I certify that the transfer of the above named patient to an Extended Care Facility is necessary for the continuing treatment of the diagnosis listed. The above information is true and accurate reflection of patient's current condition. Confidential - Redisclosure prohibited without a patient's written consent. <Gomez Butler H - Last Filed: 08/28/17 13:03> - Respiratory Orders Smoking Cessation: Smoking cessation has been advised. For more information, call the [employer] Line at 8-239-VYMZ-NOW. CERTIFICATION: I certify that the transfer of the above named patient to an Extended Care Facility is necessary for the continuing treatment of the diagnosis listed. The above information is true and accurate reflection of patient's current condition. Confidential - Redisclosure prohibited without a patient's written consent. I examined this patient and my medical decision-making was reviewed with the Resident Physician. I agree with the documented findings, disposition and treatment plan as described except to the extent set forth below.
[2017-08-28] MEDS: predniSONE 20 MG TABLET PO SCH (08:44)
[2017-08-28] MEDS: Fluticasone Propionate Nasal 50 MCG/SPRAY BOTTLE NS SCH (08:44)
[2017-08-28] MEDS: Vancomycin Oral Soln 250 MG/5 ML UDC PO SCH (08:44)
[2017-08-28] MEDS: Insulin LISPRO 300 UNITS/3 ML VIAL SQ SCH (08:48)
== END 2017-08-28 11:00 | DRG 871 ==
LOC: EMEROO 14:46 → 2ANU 14:46 → SUATTDRO 21:08 → ICNU 08-24 00:54 → 2ANU 08-24 06:42
PROVIDERS: ADMIT Nurse Practitioner Family; ATTEND Internal Medicine